=== PATIENT | male | born 1960 | race Caucasian/White ===

== ENCOUNTER 2019-11-08 15:35 | Inpatient (IN) | payer BC, SELFPAY ==
[2019-11-08 15:36] VITALS: BP 122/83; PULSE 69; RESP 14; TEMP 36.6; O2SAT 97; BMI 43.9
--- NOTE | 2019-11-08 15:44 | W.ED.CHESTPA ---
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
--- NOTE | 2019-11-08 15:49 | XRR_ITS ---
PROCEDURE INFORMATION: Exam: XR Chest, 1 View Exam date and time: 11/08/2019 4:02 PM Age: 58 years old Clinical indication: Shortness of breath; Chest pain; Type not specified; Prior surgery; Surgery date: 6+ months; Surgery type: Stent TECHNIQUE: Imaging protocol: XR of the chest Views: 1 view. COMPARISON: CR Chest 1 [place] [id number] 01/03/2018 5:33 AM FINDINGS: Lungs: In low lung volumes are seen the lungs are otherwise clear Pleural space: Unremarkable. No pleural effusion. No pneumothorax. Heart/Mediastinum: Unremarkable. No cardiomegaly. Bones/joints: Unremarkable. XR/XR chest 1V portable [id number] IMPRESSION: Low lung volumes Otherwise No acute findings.
--- NOTE | 2019-11-08 15:50 | ECG_ITS ---
Measurements Intervals [place] Rate: 65 P: -12 MA: 125 QRS: 16 QRSD: 86 T: 32 QT: 401 QTc: 419 SINUS RHYTHM LOW QRS VOLTAGE IN PRECORDIAL LEADS [QRS DEFLECTION < 1.0 mV IN CHEST LEADS] Compared to ECG 01/03/2018 09:22:28 No significant changes Electronically Signed On 11-08-2019 20:29:09 VP PURCHASING by Padmini Rey M.D. [id number] f
--- NOTE | 2019-11-08 16:01 | W.ED.CHESTPA ---
HPI - Chest Pain General: Chief Complaint: Chest Pain Stated Complaint: Chest Pain History of Present Illness: HPI narrative: 58-year-old male presents the emergency room with chest pain substernal radiating into his back similar to pain he has had before. He is a known history of coronary disease and is previously had an TX and the LAD distribution with subsequent angioplasty and stenting he remains on Brilinta. Chest pain began while he was actively doing some housework he rated it as a 10 he is on Ranexa and slow release nitro. He is allergic to aspirin. Topical nitro was applied by EMS he states it relieved the pain down to a 7 of 10. He is still having chest pain with mild shortness of breath. 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 Onset (ago): hour(s) (About 1 hour) Timing of current episode: constant Prior episodes: Yes Onset: during exertion (Mild exertion) Pain location: substernal Pain radiation: left arm, back and neck Severity: severe Pain scale (0-10): 7 Quality: tightness, heaviness, sharp and similar to prior TX Relieving factors: nitroglycerin, rest and other (oxygen) Exacerbating factors: exertion Context: recent illness Associated symptoms: Reports diaphoresis, dyspnea, palpitations and sense of impending doom; Deny abdominal pain, nausea or vomiting Treatment prior to arrival: nitroglycerin and oxygen Review of Systems Const: Reports: diaphoresis ENMT: Denies: throat pain, ear pain, nasal discharge or nasal congestion Card: Reports: chest pain, palpitations and shortness of breath on exertion Resp: Reports: shortness of breath GI: Denies: abdominal pain, nausea, vomiting, vomiting blood, coffee grounds in vomit, diarrhea, constipation, bloating, blood in stool or black tarry stool : Denies: flank pain, painful urination, urinary frequency or urinary urgency Skin/Breast: Denies: rash or itching PFSH ED PFSH: Statuses (acute, chronic, etc) shown below reflect problem list status as previously entered and may not be historically accurate Medical History Aspirin allergy (Acute) CAD (coronary artery disease) (Acute) CHF (congestive heart failure), NYHA class I (Acute) Chronic kidney disease (CKD) (Acute) Dyslipidemia (Acute) Essential hypertension (Acute) Obesity (Acute) STEMI (ST elevation myocardial infarction) (Acute) Tobacco abuse (Acute) Social History Smoking and tobacco status: former smoker Physical Exam Const: COMMON NORMALS: average body habitus, oriented x3 and alert GENERAL APPEARANCE: cooperative, comfortable, well kempt and well developed NUTRITIONAL APPEARANCE: obese ORIENTATION/CONSCIOUSNESS: Yes awake, Yes oriented to person and Yes oriented to place HENMT: COMMON NORMALS: normocephalic, head/scalp atraumatic, EAC's normal, TM's normal bilaterally, external nose normal, moist oral mucous membranes and oropharynx normal HEAD & SCALP: normocephalic and atraumatic NOSE: external nose normal EXTERNAL AUDITORY CANAL: EAC's normal TYMPANIC MEMBRANE: TM's normal bilaterally MOUTH: oral and palatal mucosa normal, lip normal and tongue normal THROAT: posterior oropharynx normal and tonsils normal Eye: COMMON NORMALS: PERRL, EOMs intact bilaterally, conjunctivae normal and no scleral icterus CONJUNCTIVA: Yes conjunctivae normal PUPIL: Yes PERRL Neck/C-Spine: COMMON NORMALS: full ROM, no lymphadenopathy, supple, no meningeal signs and thyroid normal THYROID: thyroid normal and asymmetrical Lymph: LYMPHATIC: no lymphadenopathy noted Resp: COMMON NORMALS: normal respiratory effort, no retractions, no use of accessory muscles and clear to auscultation bilaterally AUSCULTATION: clear to auscultation bilaterally Cardio: COMMON NORMALS: regular rate and regular rhythm RATE: regular rate RHYTHM: regular rhythm HEART SOUNDS: no murmurs GI: COMMON NORMALS: normal to inspection, nondistended, normoactive bowel sounds, soft to palpation and no hepatosplenomegaly PALPATION: Yes soft and Yes no hepatosplenomegaly : COMMON NORMALS: Yes no CVA tenderness BLADDER/KIDNEY EXAM: Yes no CVA tenderness Back/Pelvis: COMMON NORMALS: no CVA tenderness LUMBAR SPINE/LOWER BACK: Yes normal to inspection Extremity: COMMON NORMALS: no clubbing, cyanosis or edema, no calf tenderness and no pedal edema Neuro: COMMON NORMALS: oriented x3 SENSORIUM/ORIENTATION: Yes alert, Yes oriented to person and Yes oriented to place MENINGEAL SIGNS: Yes no meningeal signs Psych: APPEARANCE: Yes well kempt Skin: COMMON NORMALS: no rashes or lesions noted and skin turgor normal GENERAL SKIN EXAM: no rashes or lesions noted and turgor normal Course ED course: Discussed Dr. Rodriguez she will take patient on admission and consult cardiology reviewed findings to this point. Vital Signs: Vital signs: Vital Signs Temperature 98.0 F 11/09/19 10:50 Pulse Rate 70 11/09/19 15:11 Respiratory Rate 20 H 11/09/19 15:11 Blood Pressure 113/73 11/09/19 15:11 Pulse Oximetry 96 11/09/19 07:04 MDM - Chest Pain Lab Data: Labs: Lab Results 11/08/19 11/08/19 11/08/19 Range/Units 16:07 16:07 16:07 WBC 6.5 (4.0-10.0) 10^3/ uL RBC 4.50 (4.1-5.3) 10^6/u L Hgb 13.2 (11.7-16.6) g/dL Hct 42.3 (42.0-52.0) % MCV 94.0 (80-94) fL MCH 29.3 (28.0-34.0) pg MCHC 31.2 (30.0-36.0) g/dL RDW 13.5 (12.1-15.1) % Plt Count 188 (130-400) 10^3/c mm MPV 9.4 (7.4-10.4) fL Neut % (Auto) 60.6 % Lymph % (Auto) 24.8 % Davis % (Auto) 8.5 % Eos % (Auto) 3.2 % Baso % (Auto) 0.6 % Neut # (Auto) 3.9 (1.8-7.7) 10^3/u L Lymph # (Auto) 1.6 (0.8-4.8) 10^3/u L Davis # (Auto) 0.6 (0.2-0.9) 10^3/u L Eos # (Auto) 0.2 (0.0-0.8) 10^3/u L Baso # (Auto) 0.0 (0.0-0.1) 10^3/u L Nucleated RBC % (a uto) 0 % Nucleated RBCs # 0.0 /100WBC Sodium 137 (136-145) mmol/L Potassium 4.4 (3.5-5.1) mmol/L Chloride 102 (98-107) mmol/L Carbon Dioxide 25 (22-29) mmol/L Anion Gap 14.4 (5-19) BUN 22 H (6-20) mg/dL Creatinine 1.3 H (0.7-1.2) mg/dL GFR Calculation 56.7 L (90-130) mL/min Glucose 99 (74-109) mg/dL Calcium 10.0 (8.6-10.0) mg/Dl Total Bilirubin 0.3 (0.15-1.2) mg/dL AST 19 (0-40) U/L ALT 26 (0-41) U/L Alkaline Phosphata se 53 (40-130) IU/L Troponin T Baselin e 8 (0-15) ng/mL Total Protein 6.7 (6.6-8.7) g/dL Albumin 4.1 (3.5-5.2) g/dL Globulin 2.6 (1.3-4.6) g/dL Discharge Plan Discharge Patient Disposition: Admitted As Inpatient Admit Provider: Carmencita Rodriguez Condition: Stable Discharge Orders: Discharge Order (Routine); Ordered 11/09/19 Ordered By: Carmencita Rodriguez Referrals: Elba Townsend MD [Physician] - 2 weeks (You have a cardiology followup at [facility] with KRZYSZTOF Aragon on November 22 at 1:00pm. Any appointment changes, please call them at [phone]) Discharge Diet: Usual diet, Low Salt and Low Cholesterol Discharge Activity: Resume usual activity Patient Instructions: Metoprolol (By mouth), Atorvastatin (By mouth), Fenofibrate (By mouth), Ticagrelor (By mouth), Coronary Artery Disease (DC), Chest Pain Stoplight Discharge Date/Time: 11/08/19 20:00 Coding Level of Care Code ED Rejector for Tommyg Fwd Exam Problem Focused
[2019-11-08 16:22] VITALS: RESP 16
[2019-11-08] MEDS: nitroglycerin drip 50 MG/250 ML PREMIX IV (16:22)
[2019-11-08] MEDS: ondansetron 2 mg/ML SDV 2 mL 4 MG IVP (16:22)
[2019-11-08] MEDS: morphine 4 mg/mL SDV 1 mL IVP (16:22)
[2019-11-08 16:24] LABS: Basophils % 0.6 %; Eosinophils # 0.2 10^3/uL (0.0-0.8); Eosinophils % 3.2 %; Hematocrit 42.3 % (42.0-52.0); Hemoglobin 13.2 g/dL (11.7-16.6); Lymphocytes # 1.6 10^3/uL (0.8-4.8); Lymphocytes % 24.8 %; Mean Corpuscular HGB Conc 31.2 g/dL (30.0-36.0); Mean Corpuscular Hemoglobin 29.3 pg (28.0-34.0); Mean Platelet Volume 9.4 fL (7.4-10.4); Monocytes # 0.6 10^3/uL (0.2-0.9); Monocytes % 8.5 %; Neutrophils # 3.9 10^3/uL (1.8-7.7); Neutrophils % 60.6 %; Nucleated Red Blood Cells % 0 %; Platelet Count 188 10^3/cmm (130-400); Red Cell Distribution Width 13.5 % (12.1-15.1); White Blood Count 6.5 10^3/uL (4.0-10.0)
[2019-11-08 16:33] LABS: Alanine Aminotransferase 26 U/L (0-41); Albumin Level 4.1 g/dL (3.5-5.2); Alkaline Phosphatase 53 IU/L (40-130); Anion Gap 14.4 (5-19); Aspartate Amino Transferase 19 U/L (0-40); Blood Urea Nitrogen 22 mg/dL (6-20); Carbon Dioxide 25 mmol/L (22-29); Chloride 102 mmol/L (98-107); Globulin 2.6 g/dL (1.3-4.6); Glomerular Filtration Rate 56.7 mL/min (90-130); Glucose 99 mg/dL (74-109); Potassium 4.4 mmol/L (3.5-5.1); Sodium 137 mmol/L (136-145); Total Bilirubin 0.3 mg/dL (0.15-1.2); Total Protein 6.7 g/dL (6.6-8.7); Troponin(5th) Baseline 8 ng/mL (0-15)
--- NOTE | 2019-11-08 17:50 | ECG_ITS ---
Measurements Intervals [place] Rate: 61 P: 29 [place]: 152 QRS: 17 QRSD: 87 T: 32 QT: 422 QTc: 427 SINUS RHYTHM LOW QRS VOLTAGE IN PRECORDIAL LEADS [QRS DEFLECTION < 1.0 mV IN CHEST LEADS] PROBABLE INFERIOR MYOCARDIAL INFARCTION [35 ms Q WAVE IN II/aVF], OF INDETERMINATE AGE WITH POSTERIOR EXTENSION [PROMINENT R WA Compared to ECG 01/03/2018 09:22:28 Myocardial infarct finding now present Electronically Signed On 11-08-2019 20:36:29 GREEN PROMOTIONS SPECIALIST by Padmini Rey M.D. [id number]
[2019-11-08 17:53] VITALS: BP 110/69; PULSE 63; RESP 18; O2SAT 99
--- NOTE | 2019-11-08 18:36 | P.HP_ITS ---
Providers/Chief Complaint Admitting Physician: Carmencita Rodriguez MD Primary Care Provider: Anthony Marquez Chief Complaint: Chest Pain History of Present Illness Mr. Thomson is a 89/-year-old gentleman with past medical history of ST elevation SC of anterolateral wall on 02/17/2017 for which he underwent drug- eluting stent placement in 100% occluded proximal LAD. He continued to have chest heaviness and shortness of breath and underwent repeat cardiac catheterization in July 2017 and was found to have proximal to mid LAD lesions that were stented. He has aspirin allergy and is only on Brillinta. He continued to have chest pains on and off and was started on Ranexa and Imdur. He presented again in December 2017 with c/o retrosternal chest pain. Patient underwent cardiac catheterization and was found to have patent stents. His medications were optimized. He had previously had a stress test in nov 2017 which was negative. Last echo 03/2017 with Normal left ventricular cavity size. Moderate left ventricular hypertrophyof concentric type. Moderately decreased left ventricular systolic function. Left ventricular ejection fraction is estimated at 40 %. There is mid to distal anterior and apical severe hypokinesis.Grade II/IV diastolic dysfunction. He last followed up with Dr. Townsend one month ago. 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 Pain was 10/10, made him nearly want to pass out . radiation to neck +. [place] similar to his SC back in 2016. No apparent relieving factors including taking S/l nitro at home. In the ER he was started on nitro infusion because of ongoing pain in spite of nitropaste. Also received morphine after which pain has subsided over the past hour. Ekg without any acute ST-T changes. First troponin is negtive at 8. Serial test is pending. ROS + for feeling nauseous with dry heaves since waking up this morning. Headache+. Review of Systems General: Reports: 10 or more systems reviewed and unremarkable except in HPI and below Const: Denies: fever, chills, body aches or change in appetite Eyes: Denies: change in vision or blurry vision Card: Reports: chest pain; Denies: palpitations, irregular heart rhythm, edema, lightheadedness, syncope, pre-syncope or shortness of breath on exertion Resp: Denies: shortness of breath, productive cough, non-productive cough or wheezing GI: Reports: nausea; Denies: abdominal pain, vomiting, vomiting blood, coffee grounds in vomit or difficulty swallowing : Denies: flank pain, difficulty urinating, painful urination, urinary frequency or urinary urgency Neuro: Denies: headache, numbness in extremities or weakness in extremities Medications/Allergies Home Medications Medication Instructions Recorded Confirmed Last Taken Type alprazolam [Xanax] 1 mg PO Q12H 11/09/19 11/09/19 11/08/19 08:00 History cyclobenzaprine 10 mg PO Q12H 11/09/19 11/09/19 11/08/19 08:00 History ranolazine [Ranexa] 1,000 mg PO Q12H 11/09/19 11/09/19 11/08/19 08:00 History Allergies Allergy/AdvReac Type Severity Reaction Status Date / Time aspirin Allergy Unknown Verified 11/08/19 15:46 azithromycin Allergy Unknown Verified 11/08/19 15:46 NSAIDS (Non-Steroidal Allergy Unknown Verified 11/08/19 15:46 Anti-Inflamma PFSH Acute PFSH: Statuses (acute, chronic, etc) shown below reflect problem list status as previously entered and may not be historically accurate Medical History (Updated 11/09/19 @ 11:23 by Miguel Angel Bejarano MD) Aspirin allergy (Acute) CAD (coronary artery disease) (Acute) CHF (congestive heart failure), NYHA class I (Acute) Chronic kidney disease (CKD) (Acute) Dyslipidemia (Acute) Essential hypertension (Acute) Obesity (Acute) STEMI (ST elevation myocardial infarction) (Acute) Tobacco abuse (Acute) Social History Smoking and tobacco status: former smoker Vitals/I&O/Wt Last Vital Signs Temp 97.9 F 11/08/19 15:36 Pulse 63 11/08/19 17:53 Resp 18 11/08/19 17:53 BP 110/69 11/08/19 17:53 Pulse Ox 99 11/08/19 17:53 Weight last 48 hrs Weight 119.748 kg Physical Exam Narrative: EXAM NARRATIVE: Gen: Awake,alert and oriented x 3, NAD, anxious HEENT: normocephalic, atraumatic CVS: S1S2N, no M/r/g RS: Clear to auscultation B/L Abd: Soft, NT/ND, BS+ Data : 11/09/19 04:56 11/09/19 04:56 A&P Assessment and plan (1) CAD (coronary artery disease): Status: Acute Code(s): I25.10 - Atherosclerotic heart disease of [place] coronary artery without angina pectoris Additional A&P Information Per ER report, he received nitropaste applications x 2 with no significant r eleif in chest pain. He was started on nitroglycerin infusion and morphine, which eventually relieved his pain. At time of my exam, chest pain free x 1 hour Baseline troponin at 8. 2hr and 6 hr with delta pending Past echo 03/2017 as per HPI. Last angiogram as above in HPI List of current home medications N/a at this time. From review of prior records, he is on Brilinta, simvastatin, fenofibrate, metoprolol,losartan, ranexa and imdur. Per notes, known to be allergic to ASA. Will continue same for now, except for losartan as cr currently at 1.3 (previously varies between 0.9-1.3), and in case needs angiogram this current admission Cardiology consult re: pursuing cardiac stress test vs angiogram DVT ppx: Lovenox Code status: Attestations Medical Necessity Statement*: Work-up of chest pain with a significant past medical history of coronary artery disease. 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
[2019-11-08 18:40] LABS: Troponin 5 2HR 7.77 ng/mL (0-15)
[2019-11-08 18:55] LABS: Troponin 5 2HR Delta -0.23 ABS# (0-10)
[2019-11-08 19:59] VITALS: BP 134/82; PULSE 62; RESP 20; O2SAT 98
[2019-11-08 20:14] VITALS: BP 137/83; PULSE 62; RESP 24; TEMP 36.7; O2SAT 98
--- NOTE | 2019-11-08 21:50 | ECG_ITS ---
Measurements Intervals [place] Rate: 61 P: 49 [place]: 157 QRS: 18 QRSD: 92 T: 32 QT: 396 QTc: 400 SINUS RHYTHM LOW QRS VOLTAGE IN PRECORDIAL LEADS [QRS DEFLECTION < 1.0 mV IN CHEST LEADS] PROBABLE INFERIOR MYOCARDIAL INFARCTION [35 ms Q WAVE IN II/aVF], PROBABLY OLD WIT WITH POSTERIOR EXTENSION [PROMINENT R WAVE IN V1 Compared to ECG 11/08/2019 17:37:32 No significant changes Electronically Signed On 11-09-2019 15:27:52 COUNTER TOP MAKER by Miguel Angel Bejarano M.D. [id number]
[2019-11-08 23:08] LABS: Troponin 5 6HR 9.08 ng/L (0-15); Troponin 5 6HR Delta 1.08 ng/L (0-12)
[2019-11-08] MEDS: acetaminophen 325 mg Tablet 650 MG PO (23:48)
[2019-11-08] MEDS: atorvastatin 40 mg Tablet PO (23:48)
[2019-11-08] MEDS: enoxaparin 30 mg/0.3 mL Syringe SUBCUT (23:51)
[2019-11-08] MEDS: nitroglycerin drip 50 MG/250 ML PREMIX (23:54)
[2019-11-09] VITALS (8 sets, daily range): BP systolic 113–135; BP diastolic 73–97; PULSE 64–88; RESP 20–27; TEMP 36.6–36.7; O2SAT 94–97; BMI 43.9
[2019-11-09 05:40] LABS: Basophils % 0.3 %; Eosinophils # 0.2 10^3/uL (0.0-0.8); Hematocrit 42.3 % (42.0-52.0); Hemoglobin 13.2 g/dL (11.7-16.6); Lymphocytes # 1.9 10^3/uL (0.8-4.8); Lymphocytes % 25.6 %; Mean Corpuscular HGB Conc 31.2 g/dL (30.0-36.0); Mean Corpuscular Hemoglobin 30.6 pg (28.0-34.0); Mean Corpuscular Volume 97.9 fL (80-94); Mean Platelet Volume 9.5 fL (7.4-10.4); Monocytes # 0.5 10^3/uL (0.2-0.9); Monocytes % 6.9 %; Neutrophils # 4.7 10^3/uL (1.8-7.7); Neutrophils % 62.8 %; Nucleated Red Blood Cells % 0 %; Platelet Count 176 10^3/cmm (130-400); Red Blood Count 4.32 10^6/uL (4.1-5.3); Red Cell Distribution Width 13.9 % (12.1-15.1); White Blood Count 7.4 10^3/uL (4.0-10.0)
[2019-11-09 06:17] LABS: Alanine Aminotransferase 26 U/L (0-41); Albumin Level 4.1 g/dL (3.5-5.2); Alkaline Phosphatase 50 IU/L (40-130); Anion Gap 16.2 (5-19); Aspartate Amino Transferase 21 U/L (0-40); Blood Urea Nitrogen 22 mg/dL (6-20); Calcium 9.5 mg/Dl (8.6-10.0); Carbon Dioxide 23 mmol/L (22-29); Chloride 104 mmol/L (98-107); Chol HDL Ratio 4.56 mg/dL (1.0-5.00); Cholesterol 164 mg/dL (0-200); Glomerular Filtration Rate 62.2 mL/min (90-130); Glucose 106 mg/dL (74-109); HDL Cholesterol 36 mg/dL (60-100); LDL Cholesterol Calculated 83 mg/dL (50-129); LDL HDL Ratio 2.31 RATIO (0.00-3.22); Osmolality Calculated 285 mOsm/kg (285-295); Potassium 4.2 mmol/L (3.5-5.1); Sodium 139 mmol/L (136-145); Total Bilirubin 0.3 mg/dL (0.15-1.2); Total Protein 6.1 g/dL (6.6-8.7); Triglycerides 224 mg/dL (0-150)
[2019-11-09 06:30] LABS: Estmated Average Glucose 131; Hemoglobin A1C 6.2 % (4.0-6.0)
[2019-11-09] MEDS: acetaminophen 325 mg Tablet 650 MG PO (09:40)
[2019-11-09] MEDS: cyclobenzaprine 10 mg Tablet PO (10:09)
[2019-11-09] MEDS: metoprolol tartrate 25 mg Tablet PO (10:11)
[2019-11-09] MEDS: ticagrelor 90 mg Tablet PO (10:11)
[2019-11-09] MEDS: ranolazine (12HR) 500 mg Tablet 1000 MG PO (10:11)
[2019-11-09] MEDS: fenofibrate 145 mg Tablet PO (10:11)
--- NOTE | 2019-11-09 10:13 | PC.NURSE ---
Assisted primary nurse SHANNON Pascual with med pass and rounding. Med education performed with patient and . They deny further questions at this time.
--- NOTE | 2019-11-09 11:16 | P.CONIM_ITS ---
Providers/Reason For Consult Consulting Physican/Specialty*: Cardiovascular diseases Reason for Consult*: Chest pain Attending Physician: Carmencita Rodriguez MD Primary Care Provider: Anthony Marquez History of Present Illness History of Present Illness Clifford Geronimo is a 58 year old male with a known history of coronary artery disease. In February 2017 he had an acute anterior wall LA and had a stent placed to his LAD. 5 months later in July of the same year he had further stenting of the LAD. Initial anterior wall LA was complicated by congestive heart failure. His ejection fraction is about 40% with an ischemic cardiomyopathy. After that he had multiple return visits to the emergency room in the hospital between July 2017 and December 2017. I finally performed repeat angiography in December 2017 and the stents were all normal and open. Since then he has done relatively well and is seen periodically as an outpatient. He sees Dr. Townsend and just visited with him about a month ago. Patient is under a great deal of stress with his parents. He is now disabled and unemployed which stresses him. 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 He took 1 nitroglycerin, called his and then she instructed him to call 911. In route he was given several more nitroglycerin and a nitro paste patch was placed. He was also given morphine and Zofran. In the emergency room he was placed on a nitroglycerin drip. He is still on a nitro drip. He has a headache. His pain is gone. His EKGs are unchanged and his troponin is negative. Review of Systems General: Reports: 10 or more systems reviewed and unremarkable except in HPI and below Meds/Allergies Home Medications and Allergies Home Medications Medication Instructions Recorded Confirmed Type alprazolam [Xanax] 1 mg PO Q12H 11/09/19 11/09/19 History cyclobenzaprine 10 mg PO Q12H 11/09/19 11/09/19 History ranolazine [Ranexa] 1,000 mg PO Q12H 11/09/19 11/09/19 History Allergies Allergy/AdvReac Type Severity Reaction Status Date / Time aspirin Allergy Unknown Verified 11/08/19 15:46 azithromycin Allergy Unknown Verified 11/08/19 15:46 NSAIDS (Non-Steroidal Allergy Unknown Verified 11/08/19 15:46 Anti-Inflamma Current Medications Current Medications Generic Name Dose Route Start Last Admin Trade Name Freq PRN Reason Stop Dose Admin Acetaminophen 650 mg 11/08/19 19:04 11/09/19 09:40 Tylenol PO 650 mg Q6H PRN Administration Mild/Mod Pain Or Temp >/= 101 Alprazolam 1 mg 11/09/19 09:00 11/09/19 10:06 Xanax PO 1 mg BID MARSHAL Administration Atorvastatin Calcium 40 mg 11/08/19 21:00 11/08/19 23:48 Lipitor PO 40 mg BEDTIME MARSHAL Administration Cyclobenzaprine HCl 10 mg 11/09/19 09:00 11/09/19 10:09 Flexeril PO 10 mg BID MARSHAL Administration Fenofibrate 145 mg 11/09/19 09:00 11/09/19 10:11 Tricor PO 145 mg DAILY MARSHAL Administration Metoprolol Tartrate 25 mg 11/09/19 09:00 11/09/19 10:11 Lopressor PO 25 mg BID MARSHAL Administration Ticagrelor 90 mg 11/09/19 09:00 11/09/19 10:11 Brilinta PO 90 mg BID MARSHAL Administration PFSH Acute PFSH: Statuses (acute, chronic, etc) shown below reflect problem list status as previously entered and may not be historically accurate Medical History (Updated 11/09/19 @ 11:23 by Miguel Angel Bejarano MD) Aspirin allergy (Acute) CAD (coronary artery disease) (Acute) CHF (congestive heart failure), NYHA class I (Acute) Chronic kidney disease (CKD) (Acute) Dyslipidemia (Acute) Essential hypertension (Acute) Obesity (Acute) STEMI (ST elevation myocardial infarction) (Acute) Tobacco abuse (Acute) Social History Smoking and tobacco status: former smoker Vitals/I&O/Wt Last Vital Signs Temp 98.0 F 11/09/19 10:50 Pulse 88 11/09/19 10:50 Resp 27 H 11/09/19 10:50 BP 135/75 11/09/19 10:50 Pulse Ox 96 11/09/19 07:04 11/08/19 11/09/19 11/09/19 22:59 06:59 14:59 Output Total 450 / 450 1999 Balance -450 / -450 -1999 Weight last 48 hrs Weight 264 lb Weight 264 lb Physical Exam Narrative: EXAM NARRATIVE: GENERAL: In general he looks and feels well. He has a headache. HEENT: Exam within normal limits. NECK: Supple without jugular vein distention. The carotid upstroke is normal without bruits. BACK: Exam normal. LUNGS: Clear. HEART: Regular rate and rhythm. ABDOMEN: Benign without organomegaly or tenderness. EXTREMITIES: No edema. NEUROLOGIC: Exam normal. SKIN: Unremarkable. A&P Assessment and plan (1) Aspirin allergy: Status: Acute Code(s): Z88.8 - Allergy status to other drugs, medicaments and biological substances status (2) Dyslipidemia: Status: Acute Code(s): E78.5 - Hyperlipidemia, unspecified (3) Essential hypertension: Status: Acute Code(s): I10 - Essential (primary) hypertension (4) Tobacco abuse: Status: Acute Code(s): Z72.0 - Tobacco use (5) CAD (coronary artery disease): Status: Acute Code(s): I25.10 - Atherosclerotic heart disease of [place] coronary artery without angina pectoris Additional A&P Information EKG is essentially normal. Troponins are negative. Pain was somewhat atypical and slightly different than that which he had previously. He is under a lot of stress. I gave him several options. One would be to move directly to angiography which I do not really think he needs. Another would be to perform stress testing while here or as an outpatient. Thirdly would be to continue to treat him medically without any testing currently. Right now he would like to go home and see how things go. He has told me that he will contact us if he has any further discomfort and we would move forward with stress testing or angiography. He is in a relatively low risk group given the negative EKG and enzymes. His last angiogram revealed the stents to be patent which would suggest they probably still are. He will keep his regularly scheduled follow-up with Dr. Townsend. Consult Attestations Medical Necessity Statement: Not applicable Time Spent in Patient Care: Greater than 35 minutes (>than 50% of time spent in counselling and/or direct pt care on unit) . Coding Level of Care Code New Pt Acute Analytical Consultant for Chg Fwd Patient Type New History Comprehensive Exam Detailed Medical Decision Making Moderate Complexity Diagnoses Aspirin allergy Z88.8 Dyslipidemia E78.5 Essential hypertension I10 Tobacco abuse Z72.0 CAD (coronary artery disease) I25.10 Time Spent (min) 40
--- NOTE | 2019-11-09 12:49 | PC.CHAP ---
Pastoral Care Encounter/Spiritual Assessment Type of Contact [] Declined automatic blocker visit [] Patient/Family/Request visit [] Outpatient visit [] Follow-up visit [] Physician referral [] Code/Alert [x] Routine visit [] Staff referral [] Actively dying [] Patient sleeping [x] Family support [] [] Out of room [] Palliative care [] [] Receiving care in room [] Pre-surgical visit [] Trauma [] Long length of stay [] ICU visit [] Other: Relational/Emotional Strength [] Patient feels connected with others/family/visitors/staff [] Distress [] Loneliness/isolation [] Abandonment Spirituality of Patient [] Person of Kayli [] Attends Methodist of their Kayli [] Believes in Prayer [] Reads Bible or Gnosticist materials [] There are Spiritual issues to be addressed 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 Interventions [x] Prayer [] Active listening [] Non-anxious presence [] Spiritual/emotional support [] Crisis/trauma care [] Spiritual counseling [] Bereavement support [] Provided bereavement packet [] Provided Bible/devotional materials [] Provided toy/stuffed animal, coloring book to patient or family member [x] Completed spiritual assessment [] Provided Communion [] Anointing/[place] [] Salvation [] Other: Impact on Illness or Injury [] Angry [] Fearful [] Anxious [] Often cries [] Exhaustion [] Unable to work [] Unable to attend restorationism [] Unable to walk/stand [] Unable to read [] Unable to drive [] Unable to eat/drink [] Unable to sleep [] Unable to be with family [x] Other: Patients present. Patient hoping to be released to go home today. Summary Time spent with patient 5min
--- NOTE | 2019-11-09 15:15 | PM.DCS ---
Discharge Providers Date of Admission: 11/08/19 17:18 Date of Discharge: 11/09/19 Attending Provider at Admission: Carmencita Rodriguez MD Attending Provider at Discharge: Carmencita Rodriguez MD Primary Care Provider: Anthony Marquez Diagnoses at Discharge Discharge Diagnosis (1) CAD (coronary artery disease): Status: Acute Reason for Visit Reason for Visit: Reason For Visit: Chest Pain Hospital Course Discharge Summary: 89/-year-old gentleman with past medical history of ST elevation AR of anterolateral wall on 02/17/2017 for which he underwent drug-eluting stent placement in 100% occluded proximal LAD. He continued to have chest heaviness and shortness of breath and underwent repeat cardiac catheterization in July 2017 and was found to have proximal to mid LAD lesions that were stented. He has aspirin allergy and is only on Brillinta. He continued to have chest pains on and off and was started on Ranexa and Imdur. He presented again in December 2017 with c/o retrosternal chest pain. Patient underwent cardiac catheterization and was found to have patent stents. His medications were optimized. He had previously had a stress test in nov 2017 which was negative. He did yesterday with chief complaints of chest pain while working at home. It was radiating into his neck. Troponins were negative. There were no acute ST-T changes. He received multiple sublingual nitrates without any relief in symptoms. He was then put on a nitroglycerin drip which was eventually titrated off this morning. He remains chest pain-free since admission. He was seen by cardiology. Option to perform a stress test were discussed with the patient. However he states that he has been under a lot of stress recently and would prefer to go home rather than remain in the hospital at this time. He states that he will be with his who can keep an eye on him and return to the hospital in case of any recurrent chest pain for further testing. Physical Exam Narrative: EXAM NARRATIVE: GEN: Awake, alert and oriented, no acute distress CVS: S1S2 N RS: CTA B/L Abd: Soft, nt/nd , bs+ ELECTRICAL PROSPECTING ENGINEER: no focal neuro deficits Discharge Data Data Completed and Pending: Completed Studies During Hospitalization Category Date Time Status XR chest 1V rupinder ble [id number] Stat Exams 11/08/19 15:49 Completed Pending at discharge Category Date Time Status Basic Metabolic P sulma AM LABS Lab 11/10/19 04:00 Ordered Basic Metabolic P sulma AM LABS Lab 11/11/19 04:00 Ordered Labs from last 24 hours 11/09/19 11/09/19 11/09/19 04:56 04:56 04:56 WBC 7.4 RBC 4.32 Hgb 13.2 Hct 42.3 MCV 97.9 H MCH 30.6 MCHC 31.2 RDW 13.9 Plt Count 176 MPV 9.5 Neut % (Auto) 62.8 Lymph % (Auto) 25.6 [place] % (Auto) 6.9 Eos % (Auto) 3.0 Baso % (Auto) 0.3 Neut # (Auto) 4.7 Lymph # (Auto) 1.9 [place] # (Auto) 0.5 Eos # (Auto) 0.2 Baso # (Auto) 0.0 Nucleated RBC % (a uto) 0 Nucleated RBCs # 0.0 Sodium 139 Potassium 4.2 Chloride 104 Carbon Dioxide 23 Anion Gap 16.2 BUN 22 H Creatinine 1.2 GFR Calculation 62.2 L Glucose 106 Estimat Average Gl ucose 131 Hemoglobin A1c 6.2 H Calculated Osmolal ity 285 Calcium 9.5 Total Bilirubin 0.3 AST 21 ALT 26 Alkaline Phosphata se 50 Troponin I 6 Hour Troponin I Hi Sens Del Troponin T Baselin e Troponin T 120 Min [place] Delta Troponin T Total Protein 6.1 L Albumin 4.1 Globulin 2.0 Triglycerides 224 H Cholesterol 164 LDL Cholesterol, C alc 83 HDL Cholesterol 36 L LDL/HDL Ratio 2.31 Cholesterol/HDL Ra mary 4.56 11/08/19 11/08/19 11/08/19 22:20 18:15 16:07 WBC RBC Hgb Hct MCV MCH MCHC RDW Plt Count MPV Neut % (Auto) Lymph % (Auto) [place] % (Auto) Eos % (Auto) Baso % (Auto) Neut # (Auto) Lymph # (Auto) [place] # (Auto) Eos # (Auto) Baso # (Auto) Nucleated RBC % (a uto) Nucleated RBCs # Sodium Potassium Chloride Carbon Dioxide Anion Gap BUN Creatinine GFR Calculation Glucose Estimat Average Gl ucose Hemoglobin A1c Calculated Osmolal ity Calcium Total Bilirubin AST ALT Alkaline Phosphata se Troponin I 6 Hour 9.08 Troponin I Hi Sens Del 1.08 Troponin T Baselin e 8 Troponin T 120 Min [place] 7.77 Delta Troponin T -0.23 L Total Protein Albumin Globulin Triglycerides Cholesterol LDL Cholesterol, C alc HDL Cholesterol LDL/HDL Ratio Cholesterol/HDL Ra mary 11/08/19 11/08/19 16:07 16:07 WBC 6.5 RBC 4.50 Hgb 13.2 Hct 42.3 MCV 94.0 MCH 29.3 MCHC 31.2 RDW 13.5 Plt Count 188 MPV 9.4 Neut % (Auto) 60.6 Lymph % (Auto) 24.8 [place] % (Auto) 8.5 Eos % (Auto) 3.2 Baso % (Auto) 0.6 Neut # (Auto) 3.9 Lymph # (Auto) 1.6 [place] # (Auto) 0.6 Eos # (Auto) 0.2 Baso # (Auto) 0.0 Nucleated RBC % (a uto) 0 Nucleated RBCs # 0.0 Sodium 137 Potassium 4.4 Chloride 102 Carbon Dioxide 25 Anion Gap 14.4 BUN 22 H Creatinine 1.3 H GFR Calculation 56.7 L Glucose 99 Estimat Average Gl ucose Hemoglobin A1c Calculated Osmolal ity Calcium 10.0 Total Bilirubin 0.3 AST 19 ALT 26 Alkaline Phosphata se 53 Troponin I 6 Hour Troponin I Hi Sens Del Troponin T Baselin e Troponin T 120 Min [place] Delta Troponin T Total Protein 6.7 Albumin 4.1 Globulin 2.6 Triglycerides Cholesterol LDL Cholesterol, C alc HDL Cholesterol LDL/HDL Ratio Cholesterol/HDL Ra mary Vitals: Last Vital Signs Temp 98.0 F 11/09/19 10:50 Pulse 70 11/09/19 15:11 Resp 20 H 11/09/19 15:11 BP 113/73 11/09/19 15:11 Pulse Ox 96 11/09/19 07:04 Discharge Plan Discharge Patient Disposition: Home, Self-Care Condition: Stable Prescriptions: New atorvastatin 40 mg Tablet 40 mg PO BEDTIME Qty: 0 RF: 0 metoprolol tartrate 25 mg Tablet 25 mg PO BID Qty: 0 RF: 0 fenofibrate nanocrystallized 145 mg Tablet 145 mg PO DAILY Qty: 0 RF: 0 Brilinta 90 mg Tablet 90 mg PO BID Qty: 0 RF: 0 Continued ranolazine [Ranexa] 1,000 mg Tablet Extended Release 12 Hr 1,000 mg PO Q12H RF: 0 alprazolam [Xanax] 1 mg Tablet 1 mg PO Q12H RF: 0 cyclobenzaprine 10 mg Tablet 10 mg PO Q12H RF: 0 Discharge Orders: Discharge Order (Routine); Ordered 11/09/19 Ordered By: Carmencita Rodriguez Referrals: Elba Townsend MD [Physician] - 2 weeks (You [place] cardi[place] [facility] [place] KRZYSZTOF Aragon on November 22 at 1:00pm. Any appointment changes, please call them at [phone]) Discharge Diet: Usual diet, Low Salt and Low Cholesterol Discharge Activity: Resume usual activity Patient Instructions: Metoprolol (By mouth), Atorvastatin (By mouth), Fenofibrate (By mouth), Ticagrelor (By mouth), Coronary Artery Disease (DC), Chest Pain Stoplight Discharge Attestations Time Spent in Discharge Care*: less than 30 min Quality Metrics Clinical Quality Measures During this hospital stay, did patient experience: None Coding Level of Care Code Acute Physician Coding Specialist for [facility] Diagnoses CAD (coronary artery disease) I25.10
== END 2019-11-09 15:30 | disposition home or self-care (01) | DRG 303 ==
LOC: ER 17:05 → CSU 17:45
PROVIDERS: Admitting Provider Student in an Organized Health Care Education/Training Program; Emergency Provider Family Medicine; Family Provider Nurse Practitioner Family; PCP Nurse Practitioner Family; Visit Provider Student in an Organized Health Care Education/Training Program
DX: I25.10 Atherosclerotic heart disease of native coronary artery without angina pectoris (principal); I13.0 Hypertensive heart and chronic kidney disease with heart failure and stage 1 through stage 4 chronic kidney disease, or unspecified chronic kidney disease; Z68.41 Body mass index [BMI] 40.0-44.9, adult; N18.9 Chronic kidney disease, unspecified; Z87.891 Personal history of nicotine dependence; E78.5 Hyperlipidemia, unspecified; E66.9 Obesity, unspecified; I25.2 Old myocardial infarction; Z95.5 Presence of coronary angioplasty implant and graft; I50.9 Heart failure, unspecified
CPT/HCPCS: 12345; 36415; 71045; 80048; 80053; 80061; 83036; 84484; 85025; 93005; 96372; 96374; 99281; J1650; J2270; J2405; J3490

== ENCOUNTER 2020-08-26 14:07 | Outpatient (CLI) | payer BC, SELFPAY | END 2020-08-26 14:08 | disposition home or self-care (01) | LOC: WOUND 14:07 | PROVIDERS: Family Provider Nurse Practitioner Family; PCP Nurse Practitioner Family; Visit Provider Thoracic Surgery (Cardiothoracic Vascular Surgery) | DX: I87.2 Venous insufficiency (chronic) (peripheral) (principal); L97.822 Non-pressure chronic ulcer of other part of left lower leg with fat layer exposed | CPT/HCPCS: 97597; G0463 ==

== ENCOUNTER 2020-08-29 10:52 | Outpatient (CLI) | payer BC, SELFPAY | END 2020-08-29 10:53 | disposition home or self-care (01) | LOC: WOUND 10:53 | PROVIDERS: Family Provider Nurse Practitioner Family; PCP Nurse Practitioner Family; Visit Provider Nurse Practitioner Family | DX: I87.2 Venous insufficiency (chronic) (peripheral) (principal); L97.829 Non-pressure chronic ulcer of other part of left lower leg with unspecified severity | CPT/HCPCS: 29581 ==

== ENCOUNTER 2020-09-02 14:23 | Outpatient (CLI) | payer BC, SELFPAY | END 2020-09-02 14:24 | disposition home or self-care (01) | LOC: WOUND 14:23 | PROVIDERS: Family Provider Nurse Practitioner Family; PCP Nurse Practitioner Family; Visit Provider Nurse Practitioner Family | DX: I87.2 Venous insufficiency (chronic) (peripheral) (principal); L97.822 Non-pressure chronic ulcer of other part of left lower leg with fat layer exposed | CPT/HCPCS: 11042 ==

== ENCOUNTER 2020-09-09 14:44 | Outpatient (CLI) | payer BC, SELFPAY | END 2020-09-09 14:45 | disposition home or self-care (01) | PROVIDERS: Family Provider Nurse Practitioner Family; PCP Nurse Practitioner Family; Visit Provider Nurse Practitioner Family | DX: Z09 Encounter for follow-up examination after completed treatment for conditions other than malignant neoplasm (principal) | CPT/HCPCS: 99212; A6545 ==

== ENCOUNTER 2020-09-18 13:11 | Outpatient (CLI) | payer BC, SELFPAY | END 2020-09-18 13:12 | disposition home or self-care (01) | LOC: WOUND 13:12 | PROVIDERS: PCP Nurse Practitioner Family; Visit Provider Thoracic Surgery (Cardiothoracic Vascular Surgery) | DX: S60.423A Blister (nonthermal) of left middle finger, initial encounter (principal); X58.XXXA Exposure to other specified factors, initial encounter | CPT/HCPCS: 99211 ==

== ENCOUNTER 2020-09-18 14:44 | Outpatient (CLI) | payer BC, SELFPAY ==
--- NOTE | 2020-09-18 15:00 | USCV_ITS ---
Clifford Geronimo Age: 59 Gender: M : 1960 Exam Date: 09/18/2020 14:55 Ordering Phys: Sancho Bob MD (Andy) [email or web address] [place] Technologist: Finesse Levy [place] [facility] [place]: HISTORY: PROCEDURES: FINDINGS: There is no evidence of bilateral deep vein thrombosis. No evidence of superficial thrombosis in the bilateral saphenous system. No evidence of reflux was noted in the bilateral deep venous system. No venous reflux noted in the bilateral greater saphenous vein. No venous reflux noted in the bilateral small saphenous vein. CONCLUSIONS No evidence of DVT in the above-mentioned identifiable veins. No significant venous reflux either in the deep or superficial veins bilaterally Venous dimensions and the depth from the surface are as mentioned above. Normal caliber veins bilaterally Dr Padmini Rey MD [facility] (Electronically Signed) Final Date: 18 September 2020 17:24 S
== END 2020-09-18 14:45 | disposition home or self-care (01) ==
LOC: US 14:45
PROVIDERS: PCP Nurse Practitioner Family; Visit Provider Thoracic Surgery (Cardiothoracic Vascular Surgery)
DX: M79.604 Pain in right leg (principal); M79.605 Pain in left leg; L53.9 Erythematous condition, unspecified; L97.529 Non-pressure chronic ulcer of other part of left foot with unspecified severity; L97.519 Non-pressure chronic ulcer of other part of right foot with unspecified severity
CPT/HCPCS: 93970

== ENCOUNTER 2020-09-20 09:31 | Outpatient (CLI) | payer BC, SELFPAY ==
--- NOTE | 2020-09-20 09:39 | USCV_ITS ---
ErikaClifford michelle Age: 59 Gender: M : 1960 Exam Date: 09/20/2020 09:39 Ordering Phys: Sancho Bob MD (Andy) ([email or web address]) Technologist: Exam Location: [facility] [place] Indication: PAIN REDNESS NON HEALING ULCER RIGHT LEFT Brachial 112.00 mmHg Brachial 106.00 mmHg Pressure (mmHg) Waveform Pressure (mmHg) Waveform 123.00 High Thigh 103.00 132.00 Below Knee 144.00 124.00 PONDMAN 140.00 114.00 DPA 127.00 1.11 Ankle/Brachial Index 1.25 161.00 Pre-Exercise Toe Pressure 118.00 Pre-Exercise Toe/Brachial Index 1.05 1.44 FINDINGS Normal ABIs and TBIs bilaterally Normal segmental pressures CONCLUSIONS No evidence of any significant arterial obstruction, based on the above findings. Dr Padmini Rey MD [facility] (Electronically Signed) Final Date: 20 September 2020 19:10 S
== END 2020-09-20 09:32 | disposition home or self-care (01) ==
LOC: US 09:33
PROVIDERS: PCP Nurse Practitioner Family; Visit Provider Thoracic Surgery (Cardiothoracic Vascular Surgery)
DX: M79.604 Pain in right leg (principal); M79.605 Pain in left leg; L53.9 Erythematous condition, unspecified; L97.929 Non-pressure chronic ulcer of unspecified part of left lower leg with unspecified severity; L97.919 Non-pressure chronic ulcer of unspecified part of right lower leg with unspecified severity
CPT/HCPCS: 93923

== ENCOUNTER 2020-09-25 12:53 | Emergency (ER) | payer BC, SELFPAY ==
[2020-09-25 12:55] VITALS: BP 137/73; PULSE 79; RESP 22; TEMP 36.7; O2SAT 96; BMI 44.9
--- NOTE | 2020-09-25 12:55 | ECG_ITS ---
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 Measurements Intervals [place] Rate: 67 P: 58 NC: 170 QRS: 26 QRSD: 77 T: 39 QT: 402 QTc: 425 Interpretive Statements SINUS RHYTHM LOW QRS VOLTAGE IN PRECORDIAL LEADS [QRS DEFLECTION < 1.0 mV IN CHEST LEADS] WARNING: DATA QUALITY MAY AFFECT INTERPRETATION Compared to ECG 11/09/2019 00:30:38 Myocardial infarct finding no longer present Electronically Signed On 09-25-2020 19:41:35 OUTSIDE SALES CONSULTANT by Padmini Rey M.D. [id number]
--- NOTE | 2020-09-25 12:55 | XR_ITS ---
WS: [id number] XR chest 1V portable [id number] REASON FOR EXAM: cp FINDINGS: The chest is unchanged compared to 11/08/2019. The heart and mediastinum are within normal limits. No active pulmonary parenchymal pleural disease. Mild elevation of the right hemidiaphragm. Degenerative changes in the shoulder joints and thoracic spine. XR/XR chest 1V portable [id number] IMPRESSION: No acute abnormality.
[2020-09-25 13:04] VITALS: RESP 20; O2SAT 95
[2020-09-25] MEDS: morphine 4 mg/mL SDV 1 mL IVP (13:04)
--- NOTE | 2020-09-25 13:06 | ED_ITS ---
HPI - Chest Pain General: Chief Complaint: Chest Pain Stated Complaint: CP Time Seen by Provider: 09/25/20 12:55 Source: patient and EMS Mode of arrival: EMS Limitations: no limitations History of Present Illness: HPI narrative: 59-year-old male has extensive cardiac history and has had multiple stents in the past. States starting 2 hours ago he is having chest pain in the center of his chest that went to the left side of his neck. He states that the pain is a pressure type pain is felt like his pain in the past. Denies any shortness of breath denies any worsening factors. States pain was improved with nitro. complaint: chest pain Onset (ago): hour(s) Timing of current episode: episodic Prior episodes: Yes Onset: during rest Pain location: substernal Pain radiation: neck Severity: moderate Quality: tightness Relieving factors: nitroglycerin Exacerbating factors: nothing Associated symptoms: Deny abdominal pain, dyspnea, fever(s), nausea or vomiting Review of Systems Const: Denies: fever(s), chills, body aches or change in appetite Eyes: Denies: blurry vision or eye discomfort ENMT: Denies: throat pain or dental pain Card: Reports: chest pain Resp: Denies: dyspnea GI: Denies: abdominal pain, nausea, vomiting or diarrhea : Denies: dysuria Musc: Denies: neck pain or back pain Skin/Breast: Denies: rash Neuro: Denies: headache(s) Psych: Denies: depression Maicol/Lymph: Denies: easy bruising All/Imm: Denies: urticaria PFSH ED PFSH: Medical History (Updated 09/25/20 @ 15:51 by Sulema Catherine MD) Aspirin allergy CAD (coronary artery disease) CHF (congestive heart failure), NYHA class I LVEF 40% grade 2 diastolic dysfunction 03/18/2017 Chronic kidney disease (CKD) Dyslipidemia Essential hypertension Obesity STEMI (ST elevation myocardial infarction) Tobacco abuse stopped smoking in 2017 Family History Mother Anesthesia complication CAD (coronary artery disease) Diabetes Hyperlipidemia Hypertension Father Anesthesia complication CAD (coronary artery disease) Chronic kidney disease (CKD) Denies family history of Clotting disorder Dementia Psychiatric illness Suicide Bleeding disorder Family history of premature coronary artery disease Lung disease Cancer Stroke Social History Smoking and tobacco status: former smoker Alcohol intake: current Physical Exam Const: COMMON NORMALS: no acute distress, patient oriented x3 and healthy appearing HENMT: COMMON NORMALS: normocephalic and atraumatic HEAD & SCALP: no rmocephalic and atraumatic Eye: COMMON NORMALS: Equal, round and reactive pupils present and EOMs intact bilaterally PUPIL: Yes Equal, round and reactive pupils present Neck/C-Spine: COMMON NORMALS: full ROM and supple Chest: COMMONS NORMALS: normal inspection of the chest and normal palpation of entire chest wall Resp: COMMON NORMALS: normal respiratory effort, No retractions, No use of accessory muscles and clear to auscultation bilaterally AUSCULTATION: clear to auscultation bilaterally Cardio: COMMON NORMALS: regular rate, regular rhythm and No murmurs present (Cardio) RATE: regular rate RHYTHM: regular rhythm GI: COMMON NORMALS: Normal to inspection, nondistended, normoactive bowel sounds present, Soft to palpation, non-tender and no masses PALPATION: Yes Soft to palpation Extremity: COMMON NORMALS: normal to inspection and full ROM Neuro: COMMON NORMALS: patient oriented x3, moves all extremities and no focal motor deficits Psych: COMMON NORMALS: mental status grossly normal, Normal thought process present and cooperative THOUGHT PROCESS: Normal thought process present Skin: COMMON NORMALS: no rashes or lesions noted and no wounds GENERAL SKIN EXAM: no rashes or lesions noted Course Vital Signs: Vital signs: Vital Signs Temperature 98.1 F 09/25/20 12:55 Pulse Rate 73 09/25/20 14:51 Respiratory Rate 16 09/25/20 14:51 Blood Pressure 104/68 09/25/20 14:51 Pulse Oximetry 98 09/25/20 14:51 MDM - Chest Pain MDM Narrative: Medical decision making narrative: 1415 spoke to patient about his lab results and informed him his first troponin enzyme did come back in normal range. I recommended admission at this time due to his multiple risk factors. Patient states that he has to get home and is not able to stay in the hospital. I informed him that I am still quite concerned he could have acute coronary syndrome with his history and would strongly recommend admission at least for observation. Patient again refused I was able to talk him into staying for a 2-hour level. 1564 patient 2-hour troponin came back unchanged. Patient still would like to leave. 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 He has no signs of pulmonary embolism. Lab Data: Labs: Lab Results 09/25/20 09/25/20 09/25/20 Range/Units 13:11 13:11 13:11 WBC 6.1 (4.0-10.0) 10^3/ uL RBC 4.72 (4.1-5.3) 10^6/u L Hgb 13.4 (11.7-16.6) g/dL Hct 42.0 (42.0-52.0) % MCV 89.0 (80-94) fL MCH 28.4 (28.0-34.0) pg MCHC 31.9 (30.0-36.0) g/dL RDW 14.6 (12.1-15.1) % Plt Count 173 (130-400) 10^3/c mm MPV 9.2 (7.4-10.4) fL Neut % (Auto) 53.2 % Lymph % (Auto) 33.0 % [place] % (Auto) 7.7 % Eos % (Auto) 4.1 % Baso % (Auto) 0.5 % Neut # (Auto) 3.26 (1.8-7.7) 10^3/u L Lymph # (Auto) 2.0 (0.8-4.8) 10^3/u L [place] # (Auto) 0.5 (0.2-0.9) 10^3/u L Eos # (Auto) 0.3 (0.0-0.8) 10^3/u L Baso # (Auto) 0.0 (0.0-0.1) 10^3/u L Nucleated RBC % (a uto) 0 % Nucleated RBCs # 0.0 /100WBC Sodium 135 L (136-145) mmol/L Potassium 4.1 (3.5-5.1) mmol/L Chloride 100 (98-107) mmol/L Carbon Dioxide 26 (22-29) mmol/L Anion Gap 13.1 (5-19) BUN 18 (6-20) mg/dL Creatinine 1.2 (0.7-1.2) mg/dL GFR Calculation 62.0 L (90-130) mL/min Glucose 95 (65-115) mg/dL Calculated Osmolal ity 282 L (285-295) mOsm/k g Calcium 9.3 (8.5-10.5) mg/dL Total Bilirubin 0.6 (0.15-1.2) mg/dL AST 20 (0-40) U/L ALT 30 (0-41) U/L Alkaline Phosphata se 55 (40-130) IU/L Troponin T Baselin e 8 (0-15) ng/L Troponin T 120 Min [place] (0-15) ng/L Delta Troponin T (0-10) ABS# Total Protein 6.2 L (6.6-8.7) g/dL Albumin 4.1 (3.5-5.2) g/dL Globulin 2.1 (1.3-4.6) g/dL 09/25/20 Range/Units 15:00 WBC (4.0-10.0) 10^3/ uL RBC (4.1-5.3) 10^6/u L Hgb (11.7-16.6) g/dL Hct (42.0-52.0) % MCV (80-94) fL MCH (28.0-34.0) pg MCHC (30.0-36.0) g/dL RDW (12.1-15.1) % Plt Count (130-400) 10^3/c mm MPV (7.4-10.4) fL Neut % (Auto) % Lymph % (Auto) % [place] % (Auto) % Eos % (Auto) % Baso % (Auto) % Neut # (Auto) (1.8-7.7) 10^3/u L Lymph # (Auto) (0.8-4.8) 10^3/u L [place] # (Auto) (0.2-0.9) 10^3/u L Eos # (Auto) (0.0-0.8) 10^3/u L Baso # (Auto) (0.0-0.1) 10^3/u L Nucleated RBC % (a uto) % Nucleated RBCs # /100WBC Sodium (136-145) mmol/L Potassium (3.5-5.1) mmol/L Chloride (98-107) mmol/L Carbon Dioxide (22-29) mmol/L Anion Gap (5-19) BUN (6-20) mg/dL Creatinine (0.7-1.2) mg/dL GFR Calculation (90-130) mL/min Glucose (65-115) mg/dL Calculated Osmolal ity (285-295) mOsm/k g Calcium (8.5-10.5) mg/dL Total Bilirubin (0.15-1.2) mg/dL AST (0-40) U/L ALT (0-41) U/L Alkaline Phosphata se (40-130) IU/L Troponin T Baselin e (0-15) ng/L Troponin T 120 Min [place] 7.70 (0-15) ng/L Delta Troponin T -0.30 L (0-10) ABS# Total Protein (6.6-8.7) g/dL Albumin (3.5-5.2) g/dL Globulin (1.3-4.6) g/dL Imaging Data^: CXR: Attestation: I personally reviewed and interpreted this imaging study as follows: Radiologist's impression: [address] [place] [address] XRay Report Signed Patient: Clifford Geronimo Unit #: [id number] : 1960 Age/Sex: 59 / M ADM Date: 09/25/20 Loc: ER Room/Bed: Attending Dr: Ordering Provider/Ordering MD: Sulema Catherine MD Date of Service: 09/25/20 Procedure(s): XR chest 1V portable [id number] Accession Number(s): [id number] Report Number: [id number] WS: [id number] XR chest 1V portable [id number] REASON FOR EXAM: cp FINDINGS: The chest is unchanged compared to 11/08/2019. The heart and mediastinum are within normal limits. No active pulmonary parenchymal pleural disease. Mild elevation of the right hemidiaphragm. Degenerative changes in the shoulder joints and thoracic spine. XR/XR chest 1V portable [id number] IMPRESSION: No acute abnormality. EKG Data^: EKG 1: Attestation: I personally reviewed and interpreted this EKG as follows: EKG interpretation date: 09/25/20 EKG interpretation time: 13:03 Interpretation: nsr hr [address] or t wave abnomalities qrs 77 qtc 417 EKG 2: Attestation: I personally reviewed and interpreted this EKG as follows: EKG interpretation date: 09/25/20 EKG interpretation time: 15:00 Interpretation: nsr hr [address] or t wave abnormalities qrs 79 qtc 410 Discharge Plan Discharge Patient Disposition: Home Clinical Impression: Chest pain Qualifiers: Chest pain type: unspecified Qualified Code(s): R07.9 - Chest pain, unspecified Condition: Stable Prescriptions: No Action morphine 30 mg tablet 30 mg PO Q6H RF: 0 ranolazine [Ranexa] 1,000 mg tablet extended release 12 hr 1,000 mg PO Q12H Qty: 180 RF: 0 alprazolam [Xanax] 1 mg Tablet 1 mg PO Q12H RF: 0 cyclobenzaprine 10 mg Tablet 10 mg PO Q12H RF: 0 atorvastatin 40 mg tablet 40 mg PO BEDTIME@1000 RF: 0 isosorbide mononitrate 30 mg tablet extended release 24 hr 30 mg PO DAILY@0800 RF: 0 losartan 25 mg tablet 25 mg PO DAILY@0800 RF: 0 metoprolol tartrate 25 mg tablet 25 mg PO BID@0800,2000 RF: 0 fenofibrate nanocrystallized 145 mg tablet 145 mg PO DAILY@0800 RF: 0 Brilinta 90 mg tablet 90 mg PO BID@0800,1999 RF: 0 nitroglycerin 0.4 mg tablet, sublingual 0.4 mg sublingual Q5M PRN (Reason: chest pains) RF: 0 furosemide 20 mg tablet 20 mg PO DAILY@0800 RF: 0 Discharge Orders: Discharge ED (Routine); Ordered 09/25/20 Ordered By: Sulema Catherine Referrals: Lizeth Calderón FNP [Primary Care Provider] - 1-3 days Discharge Diet: Advance as tolerated Discharge Activity: Resume usual activity Patient Instructions: Chest Pain (ED) Coding Level of Care Code ED Consumer Services Consultant for [facility] Fwd Exam Comprehensive
[2020-09-25 13:20] LABS: Basophils % 0.5 %; Eosinophils # 0.3 10^3/uL (0.0-0.8); Eosinophils % 4.1 %; Hemoglobin 13.4 g/dL (11.7-16.6); Mean Corpuscular HGB Conc 31.9 g/dL (30.0-36.0); Mean Corpuscular Hemoglobin 28.4 pg (28.0-34.0); Mean Platelet Volume 9.2 fL (7.4-10.4); Monocytes # 0.5 10^3/uL (0.2-0.9); Monocytes % 7.7 %; Neutrophils # 3.26 10^3/uL (1.8-7.7); Neutrophils % 53.2 %; Nucleated Red Blood Cells % 0 %; Platelet Count 173 10^3/cmm (130-400); Red Blood Count 4.72 10^6/uL (4.1-5.3); Red Cell Distribution Width 14.6 % (12.1-15.1); White Blood Count 6.1 10^3/uL (4.0-10.0)
[2020-09-25 13:41] VITALS: BP 118/60; PULSE 65; RESP 22; O2SAT 97
[2020-09-25 13:44] LABS: Alanine Aminotransferase 30 U/L (0-41); Albumin Level 4.1 g/dL (3.5-5.2); Alkaline Phosphatase 55 IU/L (40-130); Anion Gap 13.1 (5-19); Aspartate Amino Transferase 20 U/L (0-40); Blood Urea Nitrogen 18 mg/dL (6-20); Calcium 9.3 mg/dL (8.5-10.5); Carbon Dioxide 26 mmol/L (22-29); Chloride 100 mmol/L (98-107); Globulin 2.1 g/dL (1.3-4.6); Glucose 95 mg/dL (65-115); Osmolality Calculated 282 mOsm/kg (285-295); Potassium 4.1 mmol/L (3.5-5.1); Sodium 135 mmol/L (136-145); Total Bilirubin 0.6 mg/dL (0.15-1.2); Total Protein 6.2 g/dL (6.6-8.7)
[2020-09-25 13:47] LABS: Troponin(5th) Baseline 8 ng/L (0-15)
[2020-09-25 14:21] VITALS: BP 116/71; PULSE 67; RESP 18; O2SAT 97
[2020-09-25 14:51] VITALS: BP 104/68; PULSE 73; RESP 16; O2SAT 98
--- NOTE | 2020-09-25 14:55 | ECG_ITS ---
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 Measurements Intervals [place] Rate: 75 P: 42 PA: 169 QRS: 17 QRSD: 79 T: 20 QT: 381 QTc: 427 Interpretive Statements SINUS RHYTHM LOW QRS VOLTAGE IN PRECORDIAL LEADS [QRS DEFLECTION < 1.0 mV IN CHEST LEADS] Compared to ECG 09/25/2020 13:03:27 No significant changes Electronically Signed On 09-25-2020 19:43:41 WATCH LEADER by Padmini Rey M.D. [email or web address]/[id number]
[2020-09-25 15:57] VITALS: BP 105/68; PULSE 63; RESP 21; O2SAT 97
== END 2020-09-25 15:58 | disposition home or self-care (01) ==
PROVIDERS: Emergency Provider Emergency Medicine; PCP Nurse Practitioner Family
DX: R07.9 Chest pain, unspecified (principal); I25.10 Atherosclerotic heart disease of native coronary artery without angina pectoris; I11.0 Hypertensive heart disease with heart failure; I50.9 Heart failure, unspecified; E78.5 Hyperlipidemia, unspecified; I25.2 Old myocardial infarction; Z87.891 Personal history of nicotine dependence
CPT/HCPCS: 12345; 71045; 80053; 84484; 85025; 93005; 96374; 99283; 99284; J2270

== ENCOUNTER 2020-10-02 14:18 | Outpatient (CLI) | payer BC, SELFPAY | END 2020-10-02 14:19 | disposition home or self-care (01) | LOC: WOUND 14:18 | PROVIDERS: PCP Nurse Practitioner Family; Visit Provider Thoracic Surgery (Cardiothoracic Vascular Surgery) | DX: L85.3 Xerosis cutis (principal) | CPT/HCPCS: G0463 ==

== ENCOUNTER 2020-10-09 10:10 | Outpatient (CLI) | payer BC, SELFPAY | END 2020-10-09 10:11 | disposition home or self-care (01) | LOC: WOUND 10:10 | PROVIDERS: PCP Nurse Practitioner Family; Visit Provider Nurse Practitioner Family | DX: Z09 Encounter for follow-up examination after completed treatment for conditions other than malignant neoplasm (principal) | CPT/HCPCS: 99212 ==

== ENCOUNTER 2021-02-10 13:16 | Outpatient (CLI) | payer MEDICARE, OTHER, SELFPAY ==
--- NOTE | 2021-02-10 13:21 | USCV_ITS ---
Clifford Geronimo Age: 60 Gender: M : 1960 Exam Date: 02/10/2021 13:37 Ordering Phys: Lizeth Calderón Technologist: Bahman Steele Exam Location: [facility] [place] [place] Indication: Risk Factors: Previous Vascular Surgery: Right Brachial BP: / Left Brachial BP: / Right Left Velocity (cm/s) Spectral Plaque Velocity (cm/s) Spectral Plaque Syst/Diast Broadening Syst/Diast Broadening 80.50/ 13.20 Prox CCA 75.20 / 15.40 73.90/ 19.80 Mid CCA 84.60 / 11.10 70.60/ 14.30 Distal CCA 79.50 / 16.20 101.00/28.00 Prox ICA 113.10/ 18.40 91.70/ 34.20 Mid ICA 111.70/ 18.40 105.60/35.70 Distal ICA 99.90 / 26.30 144.50 ECA 177.50 1.31 ICA/CCA 1.34 Antegrade Vertebral Antegrade 54.60/ 8.50 cm/s / cm/s Tri Subclavian Tri 105.1 101.0 0 0 FINDINGS Comparison: none available. No significant elevation of systolic or diastolic velocities. Waveforms are normal. Minimal bilateral, intimal thickening with no elevation of velocity. CONCLUSIONS Bilateral ICA stenosis less than 15%. Dr. aJne Dhillon DO (Electronically Signed) Final Date: 10 February 2021 16:05 S
== END 2021-02-10 13:17 | disposition home or self-care (01) ==
LOC: US 13:17
PROVIDERS: PCP Nurse Practitioner Family; Visit Provider Nurse Practitioner Family
DX: I25.10 Atherosclerotic heart disease of native coronary artery without angina pectoris (principal); I65.23 Occlusion and stenosis of bilateral carotid arteries
CPT/HCPCS: 93880

== ENCOUNTER → 2022-01-14 13:44 | Outpatient (BNVA) | payer MEDICARE, SELFPAY | PROVIDERS: PCP Nurse Practitioner Family; Visit Provider Internal Medicine Cardiovascular Disease | DX: I87.2 Venous insufficiency (chronic) (peripheral) (principal); I25.118 Atherosclerotic heart disease of native coronary artery with other forms of angina pectoris; I11.0 Hypertensive heart disease with heart failure; I50.32 Chronic diastolic (congestive) heart failure | CPT/HCPCS: 99214 ==

== ENCOUNTER 2022-03-13 12:24 | Outpatient (CLI) | payer MEDICARE, SELFPAY ==
--- NOTE | 2022-03-13 13:15 | USCV_ITS ---
Clifford Geronimo Age: 61 Gender: M : 1960 Exam Date: 03/13/2022 12:51 Ordering Phys: Hanh Blankenship MD ([email or web address]) Technologist: Bahman Steele Exam Location: [facility] [place] Indication: HISTORY: PROCEDURES: Bilateral duplex Venous Insufficiency study of the Deep and Superficial systems was carried out according to normal protocol with the patient in supine positon for deep system and dependent position for the superficial system. FINDINGS: All deep veins demonstrated compressibility without evidence of intraluminal thrombus or increased echogenicity. Spectral analysis of Doppler signals demonstrates normal response to compression maneuvers indicating patency without obstruction. Reflux determinations were made with the patient in the dependent position, the weight being on the contralateral leg. No notable reflux was seen at this time. CONCLUSIONS No evidence of DVT in the above-mentioned identifiable veins. No significant reflux either in the deep or in the superficial veins, based on the above finding Dr Padmini Rey MD [facility] (Electronically Signed) Final Date: 13 Mar 2022 15:33 S
== END 2022-03-13 12:25 | disposition home or self-care (01) ==
LOC: RAD 12:31
PROVIDERS: PCP Nurse Practitioner Family; Visit Provider Internal Medicine Cardiovascular Disease
DX: I87.2 Venous insufficiency (chronic) (peripheral) (principal)
CPT/HCPCS: 93970

== ENCOUNTER → 2022-03-19 09:00 | Outpatient (BNVA) | payer MEDICARE, SELFPAY | PROVIDERS: PCP Nurse Practitioner Family; Visit Provider Surgery | DX: Z12.11 Encounter for screening for malignant neoplasm of colon (principal) | CPT/HCPCS: 99024 ==

== ENCOUNTER → 2022-04-14 13:16 | Outpatient (BNVA) | payer MEDICARE, SELFPAY | PROVIDERS: PCP Nurse Practitioner Family; Visit Provider Orthopaedic Surgery | DX: M48.062 Spinal stenosis, lumbar region with neurogenic claudication (principal) | CPT/HCPCS: 72110; 99204 ==

== ENCOUNTER 2022-05-13 08:33 | Outpatient (CLI) | payer MEDICARE, SELFPAY ==
--- NOTE | 2022-05-13 08:45 | MR_ITS ---
WS: [id number] MRI LUMBAR SPINE NONCONTRAST TECHNIQUE: Sagittal T1, T2 and STIR imaging. Axial T1 and T2 imaging. CLINICAL INFORMATION: pain COMPARISON: MRI 2018 FINDINGS: Mild lumbar curve. No acute compression. No high-grade central canal stenosis. Mild annular bulging L 4-L5 and L5-S1. Remote appearing RIGHT L5-S1 hemilaminectomy. L1-L2: Normal. L2-L3: Mild LEFT foraminal narrowing. Spinal canal and foramen are patent. L3-L4: Mild annular bulging. Mild central canal stenosis. LEFT foraminal protrusion impinges the exit ing LEFT L3 nerve root. Mild LEFT foraminal narrowing. Moderate facet arthropathy. Mild RIGHT foramin al narrowing. L4-L5: Mild annular bulging. Moderate facet arthropathy. Mild LEFT foraminal narrowing. L5-S1: Remote RIGHT hemilaminectomy. RIGHT eccentric disc osteophytic ridging with mild RIGHT foramin al narrowing. Slight narrowing of the RIGHT subarticular recess. LEFT foramen is patent. Mild facet a rthropathy. Visualized pelvic bony structures: Normal. Paravertebral soft tissues: Normal. Adrenal glands are normal. Small RIGHT renal cyst measuring 11 mm. MR/MR lumbar spine wo con* [id number] IMPRESSION: 1. Mild central canal stenosis L3-L4 due to mild annular bulging with facet ar thropathy and ligamentum flavum hypertrophy. Narrowing of the subarticular rece ss bilaterally. This appears slightly progressed compared to previous. 2. Small LEFT proximal foraminal protrusion L3-L4 with slight impingement on t he exiting LEFT L3 nerve root appears progressed. 3. Mild LEFT L4-L5 foraminal narrowing with small LEFT foraminal protrusion al so progressed compared to previous. 4. Moderate facet arthropathy L3-L4 and L4-L5. 5. Remote appearing right L5-S1 hemilaminectomy. Slight narrowing of the righ t subarticular recess without significant nerve root impingement. Mild right fo raminal narrowing
== END 2022-05-13 08:34 | disposition home or self-care (01) ==
PROVIDERS: Visit Provider Orthopaedic Surgery
DX: M48.061 Spinal stenosis, lumbar region without neurogenic claudication (principal); M47.816 Spondylosis without myelopathy or radiculopathy, lumbar region; M51.26 Other intervertebral disc displacement, lumbar region
CPT/HCPCS: 72148

== ENCOUNTER → 2022-05-19 09:59 | Outpatient (BNVA) | payer MEDICARE, SELFPAY | PROVIDERS: Visit Provider Orthopaedic Surgery | DX: M48.062 Spinal stenosis, lumbar region with neurogenic claudication (principal) | CPT/HCPCS: 99214 ==

== ENCOUNTER → 2022-06-11 08:46 | Outpatient (BNVA) | payer MEDICARE, SELFPAY | PROVIDERS: PCP Nurse Practitioner Family; Visit Provider Anesthesiology Pain Medicine | DX: M79.604 Pain in right leg (principal); M79.605 Pain in left leg; Z87.891 Personal history of nicotine dependence; M48.062 Spinal stenosis, lumbar region with neurogenic claudication; M47.816 Spondylosis without myelopathy or radiculopathy, lumbar region; M51.16 Intervertebral disc disorders with radiculopathy, lumbar region | CPT/HCPCS: 99204 ==

== ENCOUNTER 2022-06-16 23:28 | Emergency (ER) | payer MEDICARE, SELFPAY ==
[2022-06-16 23:31] VITALS: BMI 61.5
[2022-06-16 23:34] VITALS: BP 151/82; PULSE 72; RESP 16; TEMP 36.7; O2SAT 95
--- NOTE | 2022-06-16 23:43 | ED_ITS ---
HPI - Back Pain/Injury General: Chief Complaint: Back Pain/Injury Stated Complaint: BACK PAIN Time Seen by Provider: 06/16/22 23:31 History of Present Illness: 61-year-old male patient comes in today for complaints of low back pain radiating down his left leg. This is a chronic condition for patient. Patient reports Wednesday he had reached over to pick something up and aggravated his low back pain. Since then patient has had increasing pain and discomfort. Patient is to have injections for his chronic back pain tomorrow. Patient at this time takes gabapentin and cyclobenzaprine for his pain along with acetaminophen. Patient has a history of coronary artery disease, venous insufficiency, dyslipidemia, and CHF. Associated symptoms: Deny fever(s), nausea or vomiting Review of Systems General: Reports: 10 or more systems reviewed and unremarkable except in HPI and below Const: Denies: fever(s) Card: Denies: chest pain Resp: Denies: dyspnea GI: Denies: nausea or vomiting : Denies: difficulty urinating Musc: Reports: back pain Skin/Breast: Denies: rash PFSH ED PFSH: Medical History Aspirin allergy CAD (coronary artery disease) CHF (congestive heart failure), NYHA class I LVEF 40% grade 2 diastolic dysfunction 03/18/2017 Chronic kidney disease (CKD) Chronic venous insufficiency of lower extremity Dyslipidemia Essential hypertension Obesity STEMI (ST elevation myocardial infarction) Tobacco abuse stopped smoking in 2017 Family History Mother Anesthesia complication CAD (coronary artery disease) Diabetes Hyperlipidemia Hypertension Father Anesthesia complication CAD (coronary artery disease) Chronic kidney disease (CKD) Denies family history of Clotting disorder Dementia Psychiatric illness Suicide Bleeding disorder Family history of premature coronary artery disease Lung disease Cancer Stroke Social History (Updated 06/11/22 @ 09:40 by Pamella Carlson LPN) Smoking and tobacco status: former smoker Second hand smoke exposure: Yes Alcohol intake: current Alcohol intake frequency: holidays/special occasions only Alcohol type: hard liquor History of recent travel: No Physical Exam Const: COMMON NORMALS: alert HENMT: COMMON NORMALS: normocephalic HEAD & SCALP: normocephalic Neck/C-Spine: COMMON NORMALS: full ROM Resp: COMMON NORMALS: normal respiratory effort Cardio: COMMON NORMALS: regular rate RATE: regular rate GI: COMMON NORMALS: non-tender Back/Pelvis: LUMBAR SPINE/LOWER BACK: Yes paraspinal muscle tenderness Lumbar paraspinal muscle tenderness: left Neuro: SENSORIUM/ORIENTATION: Yes alert Skin: COMMON NORMALS: no rashes or lesions noted GENERAL SKIN EXAM: no rashes or lesions noted Course Vital Signs: Vital signs: Vital Signs Temperature 98.0 F 06/16/22 23:34 Pulse Rate 72 06/16/22 23:34 Respiratory Rate 16 06/17/22 00:42 Blood Pressure 114/69 06/17/22 00:44 Pulse Oximetry 95 06/16/22 23:34 Oxygen Delivery Me thod 06/16/22 23:34 MDM - Back Pain/Injury Medical Decision Making 61-year-old male patient comes in today for complaints of low back pain radiating down left leg. On exam patient has tenderness in his lower back on the left side. Patient has a positive leg lift test on the left side. Patient denies any loss of bowel or bladder control. Differential diagnosis includes but not limited to facet arthropathy, intervertebral disc disease, lumbar radiculopathy, muscle strain. Feel the patient probably has exacerbation of his chronic back pain. Patient was given 8 mg of morphine IM in the ER. Patient should continue with his routine care recommendations by his pain specialist. Patient was written for 9 tablets of hydrocodone 5?325 acetaminophen for severe pain. patient reported understanding of care plan need for follow-up or return to the ER. Discharge Plan Discharge Clinical Impression: Lumbar stenosis with neurogenic claudication Back pain Qualifiers: Back pain location: low back pain Chronicity: unspecified Back pain laterality: left Sciatica presence: with sciatica Sciatica laterality: sciatica of left side Qualified Code(s): M54.42 - Lumbago with sciatica, left side Condition: Stable Prescriptions: New hydrocodone-acetaminophen 5-325 mg tablet 1 tab PO Q8H PRN (Reason: pain (scale score 7-10)) Qty: 9 0RF No Action ketoconazole 2 % shampoo 1 applic topical .2 x weekly Qty: 120 3RF Rx Instructions: Lather into scalp 2 times weekly. Allow to sit on scalp for 5 minutes before rinsing. triamcinolone acetonide 0.1 % ointment 1 applic topical BID Qty: 453.6 1RF Rx Instructions: to lower legs no more than 3 wks/mo ketoconazole 2 % cream 1 applic topical BID Qty: 60 1RF Rx Instructions: to red scaly areas on face ,ears, scalp BID for 3 weeks then daily furosemide 80 mg tablet 80 mg PO DAILY PRN acetaminophen [Tylenol Extra Strength] 500 mg tablet 500 mg PO Q6H PRN gabapentin 300 mg capsule 300 mg PO TID Qty: 90 0RF Vit D PO nitroglycerin 0.4 mg tablet, sublingual 0.4 mg sublingual Q5M PRN (Reason: chest pains) Qty: 25 3RF Brilinta 90 mg tablet 90 mg PO BID@0800,2000 Qty: 180 3RF amlodipine 5 mg tablet 5 mg PO DAILY Qty: 90 3RF isosorbide mononitrate 30 mg tablet extended release 24 hr 30 mg PO DAILY@0800 Qty: 90 1RF ranolazine [Ranexa] 1,000 mg tablet extended release 12 hr 1,000 mg PO Q12H Qty: 180 3RF Rx Instructions: take at 0800 and 2000 fenofibrate nanocrystallized 145 mg tablet 145 mg PO DAILY@0800 Qty: 90 1RF metoprolol tartrate 25 mg tablet 25 mg PO BID Qty: 180 1RF alprazolam [Xanax] 1 mg Tablet 1 mg PO Q12H Rx Instructions: take at 0800 and 2000 cyclobenzaprine 10 mg Tablet 10 mg PO Q12H Rx Instructions: take at 0800 and 2000 atorvastatin 40 mg tablet 40 mg PO BEDTIME@1000 furosemide 20 mg tablet 20 mg PO DAILY@0800 Discharge Orders: Discharge ED (Routine); Ordered 06/16/22 Ordered By: Sancho Clarke Other Ambulatory Orders: DME: Walker (Order) Location: None Selected Ordered By: Sancho Clarke Referrals: Michael Marquez FNP [Primary Care Provider] - Discharge Diet: Usual diet Discharge Activity: Increase activity as tolerated Patient Instructions: Back Pain (ED) Activity Restrictions/Additional Instructions: Use a walker to help with ambulation. It is important to stay as active as she can. Continue with acetaminophen to help control pain. Use hydrocodone for severe pain. Continue with your other recommended medications as prescribed. Follow-up with pain ambulatory care nurse for further evaluation and treatment. Return to ER for new concerns such as high fever greater than 100.4, blood in vomit or stool, or loss of bowel or bladder control. Coding Level of Care Code ED Digital Media Intern for Chg Fwd Exam Comprehensive
[2022-06-16 23:59] VITALS: RESP 18
[2022-06-16] MEDS: morphine 4 mg/mL SDV 1 mL IM (23:59)
[2022-06-17 00:42] VITALS: RESP 16
[2022-06-17] MEDS: morphine 4 mg/mL SDV 1 mL IM (00:42)
[2022-06-17 00:44] VITALS: BP 114/69
--- NOTE | 2022-06-17 00:44 | PC.NURSE ---
Attempted to get pt up. Pt states he is unable to stand. Sat pt up on side of bed. Pt attempted to stand, but was unable to. [place] Clarke notified. Walker ordered, more pain meds given.
[2022-06-17 02:09] VITALS: BP 134/79; PULSE 85; RESP 16; O2SAT 95
--- NOTE | 2022-06-17 02:15 | PC.NURSE ---
Previous discharge note was documented in error. DC note at 0210 is correct.
== END 2022-06-17 02:14 | disposition home or self-care (01) ==
PROVIDERS: Emergency Provider Nurse Practitioner Family; PCP Nurse Practitioner Family
DX: M54.42 Lumbago with sciatica, left side (principal); M48.062 Spinal stenosis, lumbar region with neurogenic claudication; Z87.891 Personal history of nicotine dependence; I25.10 Atherosclerotic heart disease of native coronary artery without angina pectoris; I11.0 Hypertensive heart disease with heart failure; I50.9 Heart failure, unspecified; E78.5 Hyperlipidemia, unspecified; I25.2 Old myocardial infarction
CPT/HCPCS: 96372; 99284; J2270

== ENCOUNTER → 2022-06-17 14:06 | Outpatient (BNVA) | payer MEDICARE, SELFPAY | PROVIDERS: PCP Nurse Practitioner Family; Visit Provider Anesthesiology Pain Medicine | DX: M47.816 Spondylosis without myelopathy or radiculopathy, lumbar region (principal); M54.42 Lumbago with sciatica, left side; Z87.891 Personal history of nicotine dependence | CPT/HCPCS: 64493; 64494; 64495 ==

== ENCOUNTER 2022-06-19 14:38 | Outpatient (CLI) | payer MEDICARE, SELFPAY ==
--- NOTE | 2022-06-19 15:15 | USCV_ITS ---
Clifford Geronimo Age: 61 Gender: M : 1960 Exam Date: 06/19/2022 14:46 Ordering Phys: Michael Marquez Technologist: Angela Lerma [place] [facility] [place]: Chronic diastoli heart failure BP: 114 / 70 HR: 72 Rhythm: Sinus Technical Quality: Technically difficult study MEASUREMENTS (Male / Female) Normal Values 2D ECHO LV Diastolic Diameter PLAX 4.4 cm 4.2 - 5.9 / 3.9 - 5.3 cm LV Systolic Diameter PLAX 3.6 cm LV Chamber Size 2.8 cm IVS Diastolic Thickness 1.1 cm 0.6 - 1.0 / 0.6 - 0.9 cm IVS Systolic Thickness 1.3 cm LVPW Diastolic Thickness 1.2 cm 0.6 - 1.0 / 0.6 - 0.9 cm LVPW Systolic Thickness 1.6 cm RV Chamber Size 2.4 cm LVOT Diameter 2.1 cm LV Ejection Fraction 2D Teich 35.1 % LV Ejection Fraction MOD 2C 48.2 % LV Ejection Fraction 2C AL 53.7 % LA Diameter 3.0 cm LA Width 3.0 cm LA Height 3.6 cm RA Width 3.1 cm RA Height 3.2 cm Aorta at Sinotubular Diameter 3.0 cm IVC Diameter 2.5 cm M-MODE Aortic Annulus Diameter 3.7 cm LA Ao Ratio MM 1.0 MV E Point Septal Separation 0.4 cm DOPPLER AV Peak Velocity 161.0 cm/s LVOT Peak Velocity 86.0 cm/s AV Area Cont Eq vti 2.1 cm squared AV Area Cont Eq pk 1.8 cm squared MV Area PHT 2.6 cm squared Mitral E to A Ratio 1.3 MV E' Velocity 44.0 cm/s Mitral E to MV E' Ratio 5.9 Mitral E to LV E' Lateral Ratio 5.3 Mitral E to LV E' Septal Ratio 6.6 TR Peak Velocity 155.0 cm/s TR Peak Gradient 9.6 mmHg TR Mean Velocity 118.2 cm/s TR Mean Gradient 6.3 mmHg TR Velocity Time Integral 34.9 cm TV Peak E Velocity 59.0 cm/s Right Atrial Pressure 3.0 mmHg Pulmonary Artery Systolic Pressu 12.6 mmHg RV Acceleration Time 0.4 s RV Ejection Time 0.2 s RV AcT/ET 2.2 FINDINGS Left Ventricle Normal left ventricular cavity size and systolic function. Left ventricular ejection fraction is estimated at 55-60 %. No diagnostic regional wall motion abnormalities based on this TDS study. Normal diastolic function. Right Ventricle Probably normal right ventricular size and systolic function. Right ventricular systolic pressure 12.6 mmHg. Right Atrium Right atrium not well visualized. Normal right atrial size. Left Atrium Normal left atrial size. Mitral Valve Structurally normal mitral valve. No mitral valve stenosis. No mitral valve regurgitation. Aortic Valve Aortic valve not well visualized. No aortic valve stenosis. No aortic valve regurgitation. Tricuspid Valve Structurally normal tricuspid valve. Pulmonic Valve Pulmonic valve not well visualized. Pericardium No pericardial effusion. Aorta Normal size aortic root. IVC Inferior vena cava not visualized. CONCLUSIONS 1. Normal left ventricular cavity size and systolic function. Left ventricular ejection fraction is estimated at 55-60 %. No diagnostic regional wall motion abnormalities based on this TDS study. Normal diastolic function. 2. No significant valvular abnormality. 3. When compared to previous study report LV function seems to have improved. Hanh Blankenship MD (Electronically Signed) Final Date: 19 June 2022 17:46 S
== END 2022-06-19 14:39 | disposition home or self-care (01) ==
LOC: RAD 14:39
PROVIDERS: PCP Nurse Practitioner Family; Visit Provider Nurse Practitioner Family
DX: I50.32 Chronic diastolic (congestive) heart failure (principal)
CPT/HCPCS: 93306

== ENCOUNTER → 2022-07-01 14:01 | Outpatient (BNVA) | payer MEDICARE, SELFPAY | PROVIDERS: PCP Nurse Practitioner Family; Visit Provider Anesthesiology Pain Medicine | DX: M47.816 Spondylosis without myelopathy or radiculopathy, lumbar region (principal); M48.062 Spinal stenosis, lumbar region with neurogenic claudication; Z87.891 Personal history of nicotine dependence | CPT/HCPCS: 64493; 64494; 64495; J3490 ==

== ENCOUNTER → 2022-07-15 10:54 | Outpatient (BNVA) | payer MEDICARE, SELFPAY | PROVIDERS: PCP Nurse Practitioner Family; Visit Provider Anesthesiology Pain Medicine | DX: R07.9 Chest pain, unspecified (principal); I25.118 Atherosclerotic heart disease of native coronary artery with other forms of angina pectoris; I11.0 Hypertensive heart disease with heart failure; I50.32 Chronic diastolic (congestive) heart failure; I87.2 Venous insufficiency (chronic) (peripheral); Z87.891 Personal history of nicotine dependence; M48.062 Spinal stenosis, lumbar region with neurogenic claudication; M47.816 Spondylosis without myelopathy or radiculopathy, lumbar region; M51.16 Intervertebral disc disorders with radiculopathy, lumbar region; M79.604 Pain in right leg; M79.605 Pain in left leg | CPT/HCPCS: 99214 ==

== ENCOUNTER → 2022-08-17 13:39 | Outpatient (BNVA) | payer MEDICARE, SELFPAY | PROVIDERS: PCP Nurse Practitioner Family; Visit Provider Anesthesiology Pain Medicine | DX: M54.16 Radiculopathy, lumbar region (principal); M48.062 Spinal stenosis, lumbar region with neurogenic claudication; Z87.891 Personal history of nicotine dependence | CPT/HCPCS: 64483; 64484; J1100; J3490 ==

== ENCOUNTER → 2022-09-16 10:51 | Outpatient (BNVA) | payer MEDICARE, SELFPAY | PROVIDERS: PCP Nurse Practitioner Family; Visit Provider Anesthesiology Pain Medicine | DX: M48.062 Spinal stenosis, lumbar region with neurogenic claudication (principal); M47.816 Spondylosis without myelopathy or radiculopathy, lumbar region; M51.16 Intervertebral disc disorders with radiculopathy, lumbar region; M79.604 Pain in right leg; M79.605 Pain in left leg; Z87.891 Personal history of nicotine dependence | CPT/HCPCS: 99214 ==

== ENCOUNTER 2022-09-30 08:42 | Outpatient (CLI) | payer MEDICARE, SELFPAY ==
--- NOTE | 2022-09-30 08:53 | ECG_ITS ---
[facility] Test Date: 2022-09-30 Pat Name: Clifford Geronimo Department: Room: Gender: Male Paper Counter: : 1960 Requested By: Hanh Blankenship Order Number: [id number] Jennifer MD: Hanh Blankenship M.D. Interpretive Statements NAME OF STUDY: LEXISCAN SESTAMIBI STRESS TEST INDICATION: Chest Pain PROCEDURE: At the baseline, the blood pressure was 114/84 mmHg with a heart rate of 57 bpm. The electrocardiogram showed sinus rhythm, normal axis with normal ST-T's. The Lexiscan was infused over a period of 20 seconds. A total of 0.4 milligrams of Lexiscan was infused. The stress phase was continued for a total of 5 minutes. Heart rate at the end of the stress phase was 69 bpm with a blood pressure of 115/76 mmHg. The EKG at the peak infusion revealed sinus rhythm with no significant ST-T wave changes. The study was terminated due to protocol completion. Sestamibi was injected 20 seconds after the Lexiscan infusion. Blood pressure at the end of the recovery phase was 112/82 mmHg with a heart rate of 81 beats per minute. CONCLUSION: 1. Normal EKG response to LexiScan infusion. 2. No LexiScan induced chest pain or cardiac arrhythmia. 3. Normal blood pressure and heart rate response. 4. Sestamibi/sestamibi perfusion scan pending; see separate report. Electronically Signed On 10-01-2022 15:41:06 SAP BUSINESS ANALYST by Hanh Blankenship M.D. [id number]
--- NOTE | 2022-09-30 08:53 | NMCV_ITS ---
NM eugene perf SPECT r/s* [id number] Clifford Geronimo Age: 61 Gender: M : 1960 Exam Date: 09/30/2022 09:55 Ordering Phys: Hanh Blankenship MD ([email or web address]) Technologist: GREG Patterson Exam Location: [facility] Indications: CHEST PAIN STRESS TEST Please see separate stress test report in [facility] for full findings IMAGE PROTOCOL Rest/Stress 1 Lexiscan Day Radiopharmaceutical Dose (mCi) Administration Site Administered by Rest: Tc-99m 10.8 IV GREG Botello Sestamibi Stress:Tc-99m 33.0 IV GREG Botello Sestamibi Rest: 30-Sep-2022 60 Discovery 630 Stress: 30-Sep-2022 30 Discovery 630 0.4mg Lexiscan. Supine position only as patient was unable to lay prone. SPECT RESULTS Technical Quality: Excellent Raw Data Analysis: Normal Image Corrections: No attenuation or motion correction applied Summed Stress Score: 0 Summed Rest Score: 3 Summed Difference Score: 0 PERFUSION FINDINGS Small sized perfusion abnormality of mild severity of apical septal tear, apical anterior and apical stapleton at rest images with improved tracer uptake on stress images. This is suggestive of attenuation artifact. FUNCTIONAL RESULTS (calculated via Gated SPECT) Stress Image LV EF (%): 63 Stress EDV (mL):103 TID: 1.1 Stress ESV (mL):38 FUNCTIONAL FINDINGS: The left ventricle is normal in size. Transient Ischemia Dilatation of 1.1. There is normal left ventricular systolic function. The left ventricular ejection fraction is normal with a value of 63%. There is normal left ventricular wall thickening. IMPRESSIONS 1. Myocardial perfusion imaging is normal. Attenuation artifact noted in apical anterior, apical septal and apical stapleton. 2. Overall left ventricular systolic function is normal without regional wall motion abnormalities, LVEF=63%. 3. No significant EKG changes with Lexiscan infusion. 4. Scan indicates low risk for cardiac events. Hanh Blankenship MD (Electronically Signed) Final Date: 01 October 2022 15:44 S
[2022-09-30 09:09] VITALS: BMI 47.5
[2022-09-30] MEDS: regadenoson 0.4 Mg/5 ml Syringe IVP (10:23)
[2022-09-30 10:41] VITALS: BP 117/81; PULSE 68
== END 2022-09-30 08:43 | disposition home or self-care (01) ==
PROVIDERS: PCP Nurse Practitioner Family; Visit Provider Internal Medicine Cardiovascular Disease
DX: R07.89 Other chest pain (principal)
CPT/HCPCS: 36415; 78452; 93017; 96374; A9500; J2785

== ENCOUNTER → 2022-10-06 10:38 | Outpatient (BNVA) | payer MEDICARE, SELFPAY | PROVIDERS: PCP Nurse Practitioner Family; Visit Provider Anesthesiology Pain Medicine | DX: M48.062 Spinal stenosis, lumbar region with neurogenic claudication (principal); M47.816 Spondylosis without myelopathy or radiculopathy, lumbar region; M51.16 Intervertebral disc disorders with radiculopathy, lumbar region; M79.604 Pain in right leg; M79.605 Pain in left leg | CPT/HCPCS: 99214 ==

== ENCOUNTER → 2022-10-27 10:51 | Outpatient (BNVA) | payer MEDICARE, SELFPAY | PROVIDERS: PCP Nurse Practitioner Family; Visit Provider Anesthesiology Pain Medicine | DX: M17.11 Unilateral primary osteoarthritis, right knee (principal); M25.561 Pain in right knee; M48.062 Spinal stenosis, lumbar region with neurogenic claudication; M47.816 Spondylosis without myelopathy or radiculopathy, lumbar region; M51.16 Intervertebral disc disorders with radiculopathy, lumbar region; M25.569 Pain in unspecified knee; M17.0 Bilateral primary osteoarthritis of knee | CPT/HCPCS: 73564; 99214 ==

== ENCOUNTER → 2022-12-24 10:45 | Outpatient (BNVA) | payer MEDICARE, SELFPAY | PROVIDERS: PCP Nurse Practitioner Family; Visit Provider Anesthesiology Pain Medicine | DX: M48.062 Spinal stenosis, lumbar region with neurogenic claudication (principal); M47.816 Spondylosis without myelopathy or radiculopathy, lumbar region; M51.16 Intervertebral disc disorders with radiculopathy, lumbar region; M17.0 Bilateral primary osteoarthritis of knee | CPT/HCPCS: 99214 ==

== ENCOUNTER → 2023-01-13 12:52 | Outpatient (BNVA) | payer MEDICARE, SELFPAY | PROVIDERS: PCP Nurse Practitioner Family; Visit Provider Anesthesiology Pain Medicine | DX: M47.816 Spondylosis without myelopathy or radiculopathy, lumbar region (principal); M48.062 Spinal stenosis, lumbar region with neurogenic claudication | CPT/HCPCS: 64493; 64494; 64495; J3490 ==

== ENCOUNTER → 2023-01-15 12:26 | Outpatient (BNVA) | payer MEDICARE, SELFPAY | PROVIDERS: PCP Nurse Practitioner Family; Referring Provider Anesthesiology Pain Medicine; Visit Provider Student in an Organized Health Care Education/Training Program | DX: M17.0 Bilateral primary osteoarthritis of knee (principal) | CPT/HCPCS: 20610; 99204; L1851 ==

== ENCOUNTER → 2023-01-15 13:06 | Outpatient (BNVA) | payer MEDICARE, SELFPAY | PROVIDERS: PCP Nurse Practitioner Family; Referring Provider Anesthesiology Pain Medicine; Visit Provider Student in an Organized Health Care Education/Training Program | DX: M17.0 Bilateral primary osteoarthritis of knee (principal) | CPT/HCPCS: 73560; 73565 ==

== ENCOUNTER → 2023-02-01 13:53 | Outpatient (BNVA) | payer MEDICARE, SELFPAY | PROVIDERS: PCP Nurse Practitioner Family; Visit Provider Anesthesiology Pain Medicine | DX: M47.816 Spondylosis without myelopathy or radiculopathy, lumbar region (principal); M48.062 Spinal stenosis, lumbar region with neurogenic claudication | CPT/HCPCS: 64493; 64494; 64495; J3490 ==

== ENCOUNTER → 2023-02-22 08:44 | Outpatient (BNVA) | payer MEDICARE, SELFPAY | PROVIDERS: PCP Nurse Practitioner Family; Visit Provider Anesthesiology Pain Medicine | DX: M17.0 Bilateral primary osteoarthritis of knee (principal); M48.062 Spinal stenosis, lumbar region with neurogenic claudication; M47.816 Spondylosis without myelopathy or radiculopathy, lumbar region; M51.16 Intervertebral disc disorders with radiculopathy, lumbar region | CPT/HCPCS: 20610; 99214; J3301; J7318 ==

== ENCOUNTER → 2023-03-10 15:14 | Outpatient (BNVA) | payer MEDICARE, SELFPAY | PROVIDERS: PCP Nurse Practitioner Family; Visit Provider Internal Medicine Cardiovascular Disease | DX: I11.0 Hypertensive heart disease with heart failure (principal); I50.9 Heart failure, unspecified; I25.118 Atherosclerotic heart disease of native coronary artery with other forms of angina pectoris; I87.2 Venous insufficiency (chronic) (peripheral); Z87.891 Personal history of nicotine dependence | CPT/HCPCS: 99214 ==

== ENCOUNTER → 2023-03-16 13:24 | Outpatient (BNVA) | payer MEDICARE, SELFPAY | PROVIDERS: PCP Nurse Practitioner Family; Visit Provider Anesthesiology Pain Medicine | DX: M47.816 Spondylosis without myelopathy or radiculopathy, lumbar region (principal) | CPT/HCPCS: 64635; 64636; J1030 ==

== ENCOUNTER 2023-03-17 09:58 | Outpatient (CLI) | payer MEDICARE, SELFPAY ==
[2023-03-17 11:39] LABS: Alanine Aminotransferase 33 U/L (0-41); Albumin Level 4.1 g/dL (3.5-5.2); Alkaline Phosphatase 69 U/L (40-130); Aspartate Amino Transferase 19 U/L (0-40); Blood Urea Nitrogen 22 mg/dL (8-23); Calcium 9.1 mg/dL (8.5-10.5); Carbon Dioxide 25 mmol/L (22-29); Chloride 110 mmol/L (98-107); Chol HDL Ratio 4.98 mg/dL (1.0-5.00); Cholesterol 244 mg/dL (0-200); Globulin 2.8 g/dL (1.3-4.6); Glomerular Filtration Rate 55.9 mL/min (90-130); Glucose 125 mg/dL (65-115); HDL Cholesterol 49 mg/dL (60-100); LDL Cholesterol Calculated 171 mg/dL (50-129); LDL HDL Ratio 3.49 RATIO (0.00-3.22); Magnesium 2.2 mg/dL (1.7-2.3); NT Pro B Type Natriuretic Pept 95 pg/mL (0-125); Osmolality Calculated 303 mOsm/kg (285-295); Sodium 144 mmol/L (136-145); Total Bilirubin 0.2 mg/dL (0.15-1.2); Total Protein 6.9 g/dL (6.6-8.7); Triglycerides 120 mg/dL (0-150)
[2023-03-17 11:44] LABS: Anion Gap 13.3 (5-19); Potassium 4.3 mmol/L (3.5-5.1)
== END 2023-03-17 09:59 | disposition home or self-care (01) ==
PROVIDERS: PCP Nurse Practitioner Family; Visit Provider Internal Medicine Cardiovascular Disease
DX: R07.89 Other chest pain (principal); I50.9 Heart failure, unspecified; I25.118 Atherosclerotic heart disease of native coronary artery with other forms of angina pectoris
CPT/HCPCS: 80053; 80061; 83735; 83880

== ENCOUNTER → 2023-03-24 13:01 | Outpatient (BNVA) | payer MEDICARE, SELFPAY | PROVIDERS: PCP Nurse Practitioner Family; Visit Provider Nurse Practitioner Family | DX: I11.0 Hypertensive heart disease with heart failure (principal); I50.9 Heart failure, unspecified; I87.2 Venous insufficiency (chronic) (peripheral); Z87.891 Personal history of nicotine dependence | CPT/HCPCS: 36415; 80048; 99214 ==

== ENCOUNTER → 2023-03-30 13:17 | Outpatient (BNVA) | payer MEDICARE, SELFPAY | PROVIDERS: PCP Nurse Practitioner Family; Visit Provider Anesthesiology Pain Medicine | DX: M47.816 Spondylosis without myelopathy or radiculopathy, lumbar region (principal); M48.062 Spinal stenosis, lumbar region with neurogenic claudication | CPT/HCPCS: 64635; 64636; J1030 ==

== ENCOUNTER 2023-04-01 13:14 | Outpatient (CLI) | payer MEDICARE, SELFPAY ==
--- NOTE | 2023-04-01 13:30 | USCV_ITS ---
Clifford Geronimo Age: 62 Gender: M : 1960 Exam Date: 04/01/2023 13:32 Ordering Phys: Akanksha Graham Technologist: MARIA ANTONIA [place]am [place] [facility] [place] Indication: HISTORY: PROCEDURES: FINDINGS: The veins were found to be easily compressible with spontaneous blood flow. Non pulsatile flow pattern. No significant refluxes were noted either in the deep or in the superficial vein CONCLUSIONS 1. No evidence of DVT in the above-mentioned identifiable veins 2. No significant venous refluxes bilaterally Dr Padmini Rey MD [facility] (Electronically Signed) Final Date: 15 April 2023 17:16 S
== END 2023-04-01 13:15 | disposition home or self-care (01) ==
PROVIDERS: PCP Nurse Practitioner Family; Visit Provider Nurse Practitioner Family
DX: I87.2 Venous insufficiency (chronic) (peripheral) (principal); I50.9 Heart failure, unspecified
CPT/HCPCS: 93970

== ENCOUNTER 2023-04-27 07:56 | Outpatient (CLI) | payer MEDICARE, SELFPAY ==
[2023-04-27 08:39] LABS: Anion Gap 13.4 (5-19); Blood Urea Nitrogen 25 mg/dL (8-23); Calcium 9.6 mg/dL (8.5-10.5); Carbon Dioxide 29 mmol/L (22-29); Chloride 98 mmol/L (98-107); Glomerular Filtration Rate 55.9 mL/min (90-130); Glucose 138 mg/dL (65-115); Magnesium 1.9 mg/dL (1.7-2.3); NT Pro B Type Natriuretic Pept 46 pg/mL (0-125); Osmolality Calculated 291 mOsm/kg (285-295); Potassium 3.4 mmol/L (3.5-5.1); Sodium 137 mmol/L (136-145)
== END 2023-04-27 07:57 | disposition home or self-care (01) ==
PROVIDERS: PCP Nurse Practitioner Family; Visit Provider Internal Medicine Cardiovascular Disease
DX: M48.062 Spinal stenosis, lumbar region with neurogenic claudication (principal); M47.816 Spondylosis without myelopathy or radiculopathy, lumbar region; M51.16 Intervertebral disc disorders with radiculopathy, lumbar region; M17.9 Osteoarthritis of knee, unspecified; I50.9 Heart failure, unspecified; R07.89 Other chest pain
CPT/HCPCS: 36415; 80048; 83735; 83880; 99214

== ENCOUNTER → 2023-08-13 08:52 | Outpatient (BNVA) | payer MEDICARE, SELFPAY | PROVIDERS: PCP Nurse Practitioner Family; Visit Provider Internal Medicine Cardiovascular Disease | DX: I13.0 Hypertensive heart and chronic kidney disease with heart failure and stage 1 through stage 4 chronic kidney disease, or unspecified chronic kidney disease (principal); N18.9 Chronic kidney disease, unspecified; I50.9 Heart failure, unspecified; I25.118 Atherosclerotic heart disease of native coronary artery with other forms of angina pectoris; Z87.891 Personal history of nicotine dependence | CPT/HCPCS: 99214 ==

== ENCOUNTER → 2023-08-31 13:32 | Outpatient (BNVA) | payer MEDICARE, SELFPAY | PROVIDERS: PCP Nurse Practitioner Family; Visit Provider Student in an Organized Health Care Education/Training Program | DX: M17.0 Bilateral primary osteoarthritis of knee (principal) | CPT/HCPCS: 20610; 99214; J3301 ==

== ENCOUNTER 2023-10-04 13:58 | Outpatient (CLI) | payer MEDICARE, SELFPAY ==
--- NOTE | 2023-10-04 14:45 | USCV_ITS ---
Clifford Geronimo Age: 62 Gender: M : 1960 Exam Date: 10/04/2023 14:49 Ordering Phys: Michael Marquez Technologist: Bahman Steele Exam Location: [facility] [place] Indication: dizzy Risk Factors: Previous Vascular Surgery: Right Brachial BP: / Left Brachial BP: / Right Left Velocity (cm/s) Spectral Plaque Velocity (cm/s) Spectral Plaque Syst/Diast Broadening Syst/Diast Broadening 98.10/ 15.40 Prox CCA 108.50/ 20.50 84.90/ 22.10 Mid CCA 100.80/ 23.10 62.80/ 19.80 Hetro Distal CCA 76.00 / 16.20 89.30/ 15.40 Prox ICA 124.30/ 21.80 61.70/ 23.20 Mid ICA 115.00/ 29.50 73.90/ 22.10 Distal ICA 85.40 / 20.20 133.40 ECA 200.40 0.87 ICA/CCA 1.15 Antegrade Vertebral Antegrade 30.90/ 8.50 cm/s 47.40/ 10.10 cm/s [place] Subclavian Bi 90.60 65.25 FINDINGS Comparison:. 02/10/21 No significant elevation of systolic or diastolic velocities. Waveforms are normal. Mixture of calcified and noncalcified plaque in the bifurcations. CONCLUSIONS Bilateral ICA stenosis less than 50%. Dr. Jane Dhillon DO (Electronically Signed) Final Date: 05 October 2023 07:20 S
== END 2023-10-04 13:59 | disposition home or self-care (01) ==
LOC: RAD 13:58
PROVIDERS: PCP Nurse Practitioner Family; Visit Provider Nurse Practitioner Family
DX: R09.89 Other specified symptoms and signs involving the circulatory and respiratory systems (principal); R42 Dizziness and giddiness; I65.23 Occlusion and stenosis of bilateral carotid arteries
CPT/HCPCS: 93880

== ENCOUNTER → 2023-12-14 09:01 | Outpatient (BNVA) | payer MEDICARE, SELFPAY | PROVIDERS: PCP Nurse Practitioner Family; Visit Provider Student in an Organized Health Care Education/Training Program | DX: M17.0 Bilateral primary osteoarthritis of knee (principal) | CPT/HCPCS: 20610; 99213; J3301 ==

== ENCOUNTER → 2023-12-16 14:00 | Outpatient (BNVA) | payer MEDICARE, SELFPAY | PROVIDERS: PCP Nurse Practitioner Family; Referring Provider Nurse Practitioner Family; Visit Provider Internal Medicine | DX: I13.0 Hypertensive heart and chronic kidney disease with heart failure and stage 1 through stage 4 chronic kidney disease, or unspecified chronic kidney disease (principal); N18.9 Chronic kidney disease, unspecified; I50.9 Heart failure, unspecified; Z87.891 Personal history of nicotine dependence; I25.118 Atherosclerotic heart disease of native coronary artery with other forms of angina pectoris; I87.2 Venous insufficiency (chronic) (peripheral) | CPT/HCPCS: 99214 ==

== ENCOUNTER 2023-12-24 09:14 | Outpatient (CLI) | payer MEDICARE, SELFPAY ==
--- NOTE | 2023-12-24 | ECG_ITS ---
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 Interpretive Statements NAME OF STUDY: LEXISCAN SESTAMIBI STRESS TEST INDICATION: [Chest Pain; Shortness of Breath, ] Procedure: At the baseline, the blood pressure was 123/92 mmHg with a heart rate of 62 bpm. The electrocardiogram showed normal sinus rhythm, normal axis with normal ST and T's. The Lexiscan was infused over a period of 20 seconds. A total of 0.4 mg of Lexiscan was infused. The stress phase was continued for a total of 5 minutes. Heart rate was at the end of stress phase was 87 bpm and a blood pressure of 116/84 mmHg. The EKG at the peak infusion revealed normal sinus rhythm with no significant ST-T wave changes. Sestamibi was injected 20 seconds after the Lexiscan infusion. Blood pressure at the end of recovery phase was 115/84 mmHg with a heart rate of 77 bpm. Conclusion: 1. Normal EKG response to Lexiscan infusion 2. No Lexiscan induced chest pain or cardiac arrhythmia. 3. Normal blood pressure and heart rate response. 4. Sestamibi/sestamibi perfusion scan pending; see separate report. Electronically Signed On 12-30-2023 11:07:58 CDT by Basim Cruz M.D. [id number]
[2023-12-24 10:29] VITALS: BMI 46.0
--- NOTE | 2023-12-24 10:29 | NMCV_ITS ---
NM eugene perf SPECT r/s* [id number] Clifford Geronimo Age: 62 Gender: M : 1960 Exam Date: 12/24/2023 10:29 Ordering Phys: Basim Cruz M.D ([email or web address]) Technologist: GREG Patterson Exam Location: [facility] Indications: CHEST PAIN STRESS TEST [facility] IMAGE PROTOCOL Rest/Stress 1 Lexiscan Day Radiopharmaceutical Dose (mCi) Administration Site Administered by Rest: Tc-99m 10.8 IV GREG Botello Sestamibi Stress:Tc-99m 32.4 IV GREG Botello Sestamibi Rest: 24-Dec-2023 60 Discovery 630 Stress: 24-Dec-2023 30 Discovery 630 0.4mg Lexiscan. Images obtained in supine and prone position. SPECT RESULTS Technical Quality: Excellent Raw Data Analysis: Normal Image Corrections: No attenuation or motion correction applied Summed Stress Score: 1 Summed Rest Score: 0 Summed Difference Score: 1 PERFUSION FINDINGS There is a very small sized, reversible perfusion defect noted in the inferolateral wall. This is consistent with very small area of ischemia in the left circumflex artery territory. FUNCTIONAL RESULTS (calculated via Gated SPECT) Stress Image LV EF (%): 65 Stress EDV (mL):110 TID: 0.89 Stress ESV (mL):38 FUNCTIONAL FINDINGS: There is normal left ventricular systolic function. IMPRESSIONS 1. Very small sized area of ischemia noted in the left circumflex artery territory. 2. LV systolic function is normal Basim Cruz MD (Electronically Signed) Final Date: 28 December 2023 10:04 S
[2023-12-24] MEDS: regadenoson 0.4 Mg/5 ml Syringe 0.400000000000000022 MG IVP (11:06)
[2023-12-24 11:44] VITALS: BP 115/84; PULSE 82
== END 2023-12-24 09:15 | disposition home or self-care (01) ==
PROVIDERS: PCP Nurse Practitioner Family; Visit Provider Internal Medicine
DX: R07.9 Chest pain, unspecified (principal)
CPT/HCPCS: 36415; 78452; 93017; 96374; A9500; J2785

== ENCOUNTER → 2024-01-31 14:47 | Outpatient (BNVA) | payer MEDICARE, SELFPAY | PROVIDERS: PCP Nurse Practitioner Family; Visit Provider Internal Medicine | DX: I13.0 Hypertensive heart and chronic kidney disease with heart failure and stage 1 through stage 4 chronic kidney disease, or unspecified chronic kidney disease (principal); N18.9 Chronic kidney disease, unspecified; I50.9 Heart failure, unspecified; I25.118 Atherosclerotic heart disease of native coronary artery with other forms of angina pectoris; I87.2 Venous insufficiency (chronic) (peripheral); Z87.891 Personal history of nicotine dependence | CPT/HCPCS: 99214 ==

== ENCOUNTER 2024-02-24 20:00 | Outpatient (CLI) | payer MEDICARE, SELFPAY | END 2024-02-24 20:01 | disposition home or self-care (01) | LOC: SLEEP 02-25 05:47 | PROVIDERS: PCP Nurse Practitioner Family; Visit Provider Nurse Practitioner Family | DX: G47.33 Obstructive sleep apnea (adult) (pediatric) (principal) | CPT/HCPCS: 95811 ==

== ENCOUNTER → 2024-03-21 08:24 | Outpatient (BNVA) | payer MEDICARE, SELFPAY | PROVIDERS: PCP Nurse Practitioner Family; Visit Provider Nurse Practitioner Family | DX: I25.118 Atherosclerotic heart disease of native coronary artery with other forms of angina pectoris (principal) | CPT/HCPCS: 80053; 80061; 85025 ==

== ENCOUNTER → 2024-05-10 13:35 | Outpatient (BNVA) | payer MEDICARE, SELFPAY | PROVIDERS: PCP Nurse Practitioner Family; Visit Provider Physician Assistant | DX: M17.11 Unilateral primary osteoarthritis, right knee (principal); M17.12 Unilateral primary osteoarthritis, left knee | CPT/HCPCS: 20610; 99213; J3301 ==

== ENCOUNTER → 2024-07-03 08:56 | Outpatient (BNVA) | payer MEDICARE, SELFPAY | PROVIDERS: PCP Nurse Practitioner Family; Visit Provider Internal Medicine | DX: I11.0 Hypertensive heart disease with heart failure (principal); I50.9 Heart failure, unspecified; I77.9 Disorder of arteries and arterioles, unspecified; I25.118 Atherosclerotic heart disease of native coronary artery with other forms of angina pectoris; I87.2 Venous insufficiency (chronic) (peripheral) | CPT/HCPCS: 36415; 80048; 83880; 99214 ==

== ENCOUNTER 2024-07-07 14:03 | Emergency (ER) | payer MEDICARE, SELFPAY ==
[2024-07-07] VITALS (7 sets, daily range): BP systolic 116–150; BP diastolic 86–94; PULSE 78–94; RESP 20; TEMP 36.7; O2SAT 93–95; BMI 46.5
--- NOTE | 2024-07-07 14:27 | XR_ITS ---
WS: [id number] Portable AP semiupright chest, 07/07/2024 Clinical Data: cp Comparison: Portable chest, 09/25/2020 Findings: No nodules, masses or effusions are seen. The heart is normal. The pulmonary vascularity is not increased. No pneumonia or pneumothorax is seen. The right diaphragm is slightly elevated, uncha nged. XR/XR chest 1V portable [id number] Impression: Negative chest.
--- NOTE | 2024-07-07 14:27 | ECG_ITS ---
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
--- NOTE | 2024-07-07 14:28 | ED_ITS ---
HPI - Chest Pain 2 General: Chief Complaint: Chest Pain Stated Complaint: cp Time Seen by Provider: 07/07/24 14:13 Source: patient and family Mode of arrival: EMS Limitations: no limitations History of Present Illness: This patient was transported to the [facility] part by EMS from his home. Both he and his family are concerned because he does not feel well over the last 24 hours. He has not history of known coronary disease has had chronic recurrent chest pain and stable angina. He is recently seen by cardiology and had an additional diuretic metolazone added to his regimen which he has taken for several days. He has not taken it today and yesterday evening due to the 's concern that it may be contributing to his current symptoms. She states he is lost approximately 17 pounds of weight since starting his diuretic since last week. He feels weak and unsteady. He denies any focal weakness just generalized global weakness. As noted he has a history of coronary disease and currently takes clopidogrel as well as his other medications. His last stent was placed several years ago. His expressed additional concern because she thought his blood pressures have been a bit higher at times over the past 24 hours. She produced blood pressure that was noted to be 169/102. He was asymptomatic at the time of this blood pressure. She states his blood pressures are normally in the 120s over 70s or thereabouts. She states she has been taking his medications as prescribed Pertinent past history: coronary artery disease Associated symptoms: Deny abdominal pain, dyspnea, fever(s), nausea or vomiting Related Data Home Medications Medication Instructions Recorded Confirmed acetaminophen 500 mg tablet 500 mg PO Q6H PRN 06/11/22 07/03/24 (Tylenol Extra Strength) cholecalciferol (vitamin D3) 25 25 mcg PO DAILY 03/10/23 07/03/24 mcg (1,000 unit) capsule furosemide 40 mg tablet 40 mg PO BID edema 07/03/24 07/03/24 furosemide 80 mg tablet (Lasix) 80 mg PO BID 07/03/24 07/03/24 Previous Rx's Medication Instructions Recorded atorvastatin 80 mg tablet 80 mg PO BEDTIME@1000 #90 tabs 03/22/23 metolazone 2.5 mg tablet 2.5 mg PO DIRECTED #14 tabs 04/13/23 gabapentin 300 mg capsule 300 mg PO TID pain #90 caps 04/27/23 nitroglycerin 0.4 mg sublingual 0.4 mg sublingual Q5M PRN chest 05/28/23 tablet pains #25 tabs amlodipine 5 mg tablet 7.5 mg (1.5 x 5 mg) PO DAILY #135 10/07/23 tabs cyclobenzaprine 10 mg tablet 10 mg PO Q12H PRN muscle spasm #60 02/11/24 tabs fenofibrate nanocrystallized 145 145 mg PO DAILY@0800 #90 tabs 02/17/24 mg tablet isosorbide mononitrate 30 mg 30 mg PO DAILY@0800 #90 tabs 02/17/24 tablet,extended release 24 hr ranolazine 1,000 mg 1,000 mg PO Q12H #180 tabs 04/04/24 tablet,extended release,12 hr needs new bipap machine #1 ea 04/27/24 potassium chloride 20 mEq See Rx Instructions .Route 04/27/24 tablet,extended release(part/cryst) .COMPLEX #60 tabs clopidogrel 75 mg tablet (Plavix) 75 mg PO DAILY #90 tabs 05/01/24 alprazolam 1 mg tablet (Xanax) 1 mg PO Q12H #60 tabs 05/03/24 metoprolol tartrate 25 mg tablet See Rx Instructions .Route 05/22/24 .COMPLEX #180 tabs metolazone 2.5 mg tablet 2.5 mg PO DAILY #7 tabs 07/03/24 Allergies Allergy/AdvReac Type Severity Reaction Status Date / Time NSAIDS (Non-Steroidal Allergy Severe ALGY-Anaphy Verified 07/03/24 09:08 Anti-Inflamma laxis aspirin Allergy ALGY-Anaphy Verified 07/03/24 09:08 laxis azithromycin Allergy ALGY-Anaphy Verified 07/03/24 09:08 laxis Review of Systems 2 Const: Reports: change in weight; Denies: fever(s), chills or body aches ENMT: Denies: throat pain, odynophagia, nasal discharge or nasal congestion Resp: Denies: dyspnea, productive cough or non-productive cough GI: Denies: abdominal pain, nausea, vomiting or diarrhea : Denies: flank pain, difficulty urinating, dysuria or urinary frequency Musc: Denies: neck pain, back pain, extremity pain or extremity swelling Skin/Breast: Denies: rash, pruritus or photosensitivity Neuro: Denies: headache(s), numbness in extremities or weakness in extremities Psych: Reports: anxiety PFSH ED 2 PFSH: Medical History CHF (congestive heart failure), NYHA class III Chronic venous insufficiency of lower extremity Chronic kidney disease (CKD) Aspirin allergy CHF (congestive heart failure), NYHA class I LVEF 40% grade 2 diastolic dysfunction 03/18/2017 Dyslipidemia Essential hypertension Obesity Tobacco abuse stopped smoking in 2017 STEMI (ST elevation myocardial infarction) CAD (coronary artery disease) Family History Mother Anesthesia complication CAD (coronary artery disease) Diabetes Hyperlipidemia Hypertension Father Anesthesia complication CAD (coronary artery disease) Chronic kidney disease (CKD) Denies family history of Clotting disorder Dementia Psychiatric illness Suicide Bleeding disorder Family history of premature coronary artery disease Lung disease Cancer Stroke Social History Smoking and tobacco/nicotine status: former use of tobacco/nicotine Second hand smoke exposure: Yes Alcohol intake: current Alcohol intake frequency: holidays/special occasions only Alcohol type: hard liquor Substance/Drug Use: never Physical Exam 2 Narrative: EXAM NARRATIVE: Anxious in appearance but able to answer questions in a goal-directed fashion and he makes good eye contact. Const: COMMON NORMALS: patient oriented x3 and alert GENERAL APPEARANCE: c ooperative NUTRITIONAL APPEARANCE: obese HENMT: COMMON NORMALS: normocephalic, Normal nasal mucous membranes and turbinates present, moist oral mucous membranes and oropharynx normal HEAD & SCALP: normocephalic NOSE: Normal nasal mucous membranes and turbinates present Eye: COMMON NORMALS: Equal, round and reactive pupils present, EOMs intact bilaterally and conjunctivae normal CONJUNCTIVA: Yes conjunctivae normal P UPIL: Yes Equal, round and reactive pupils present Neck/C-Spine: COMMON NORMALS: full ROM, no lymphadenopathy, no JVD and No carotid bruits Chest: COMMONS NORMALS: normal inspection of the chest and normal palpation of entire chest wall Resp: COMMON NORMALS: normal respiratory effort, No retractions, No use of accessory muscles and clear to auscultation bilaterally AUSCULTATION: clear to auscultation bilaterally Cardio: COMMON NORMALS: no JVD, regular rate, regular rhythm, No murmurs present (Cardio) and Peripheral pulses 2+ throughout RATE: regular rate R HYTHM: regular rhythm PERIPHERAL PULSES: Peripheral pulses 2+ throughout GI: COMMON NORMALS: Normal to inspection, nondistended, normoactive bowel sounds present and non-tender INSPECTION: Yes central obesity : COMMON NORMALS: Yes no CVA tenderness BLADDER/KIDNEY EXAM: Yes no CVA tenderness Back/Pelvis: COMMON NORMALS: no CVA tenderness, thoracic and lumbar spine normal to inspection and no thoracic nor lumbar tenderness Extremity: COMMON NORMALS: full ROM, capillary refill normal, no calf tenderness and no pedal edema NARRATIVE EXTREMITY EXAM: He has no edema in fact he has very loose skin over the subcutaneous tissues on his lower extremities without any tenseness whatsoever Neuro: COMMON NORMALS: patient oriented x3, moves all extremities, no focal motor deficits and no sensory deficits noted SENSORIUM/ORIENTATION: Yes alert CRANIAL NERVES: Yes CN normal except as noted Psych: COMMON NORMALS: mental status grossly normal Skin: COMMON NORMALS: turgor normal NARRATIVE SKIN EXAM: He has brought in this colorization and hypertrophy of the skin of his lower extremities distal from mid calf. GENERAL SKIN EXAM: turgor normal Course 2 Reevaluation(s): Reevaluation #1: The patient continues to remain stable. No new or focal findings on repeat examination. Vital signs remained stable. Initial troponin was slightly over the URL without any acute EKG changes Time: 16:20 Reevaluation #2: Again no new findings on his clinical examination second opponent is slightly over the URL but has fallen from the first troponin again without any concomitant EKG changes of concern. Reviewed his current findings in detail with the patient and his accompanying family especially his spouse. We also discussed that likely much of his symptomatology is due to his rapid weight loss due to his additional diuretic. His slightly low potassium was corrected in the emergency department as well. We reviewed additional measures such as compression sleeves to help reduce dependent edema and likelihood of skin ulcers 8 ulcerations. We also recommended checking weight to ensure that he does not have wide fluctuations related to diuretic use. She feels that she does not want him to take the additional diuretic was given to him on the short-term and I related that certainly not unreasonable as long as a follow his weight and follow-up with cardiology versus any additional ongoing symptoms and they are welcome to return to the emergency department anytime. She is very appreciative of care. Time: 18:00 Vital Signs: Vital signs: Vital Signs Temperature 98.0 F 07/07/24 14:06 Pulse Rate 81 07/07/24 18:17 Respiratory Rate 20 H 07/07/24 14:06 Blood Pressure 150/94 07/07/24 18:17 Pulse Oximetry 94 07/07/24 18:17 Oxygen Delivery Me thod Room Air 07/07/24 14:06 MDM - Chest Pain Medical Decision Making This patient with a known history of coronary disease presents to the emergency department as noted in the HPI. Differential at this time includes ACS, electrolyte abnormalities, nonsustained arrhythmia, CHF. Workup will be initiated to evaluate this differential and also reevaluate the patient for additional information that might be additional possible diagnosis. The patient received a evaluation emergency department included monitoring, serial troponins with serial EKGs. As well as other associated laboratory imaging. Throughout the emergency department stay he remained controlled and asymptomatic. Initial troponin was slightly elevated therefore a second troponin was obtained to ensure no ongoing risk of ACS at this time. Chest x- ray was reassuring. He did have a slightly low potassium and this was corrected as well. The patient continued to remain stable without any clinical or ancillary studies that suggested acute coronary syndrome or other acute process at the time of this visit therefore he was discharged in stable condition with outpatient follow-up and return precautions Medical Records I reviewed the patient's medical records. Lab Data I reviewed the patient's lab results. 07/07/24 14:50 07/07/24 14:50 Radiology Impressions Chest X-Ray 07/07/24 14:27 Impression: Negative chest. Laboratory Results WBC 12.23 10^3/uL (3.29-11.43) H 07/07/24 14:50 RBC 6.10 10^6/uL (3.85-5.65) H 07/07/24 14:50 Hgb 19.00 g/dL (11.27-16.99) H 07/07/24 14:50 Hct 54.1 % (37-53) H 07/07/24 14:50 MCV 88.7 fl (82-101) 07/07/24 14:50 MCH 31.1 pg (27-33) 07/07/24 14:50 MCHC 35.1 g/dL (30-55) 07/07/24 14:50 RDW 14.6 % (12.1-15.1) 07/07/24 14:50 Plt Count 240 10^3/cmm (157-399) 07/07/24 14:50 MPV 9.3 fL (7.4-10.4) 07/07/24 14:50 Neut % (Auto) 69.7 % 07/07/24 14:50 Lymph % (Auto) 19.8 % 07/07/24 14:50 Wilkin % (Auto) 8.4 % 07/07/24 14:50 Eos % (Auto) 0.3 % 07/07/24 14:50 Baso % (Auto) 0.5 % 07/07/24 14:50 Neut # (Auto) 8.52 10^3/uL (1.8-7.7) H 07/07/24 14:50 Lymph # (Auto) 2.4 10^3/uL (0.8-4.8) 07/07/24 14:50 Wilkin # (Auto) 1.0 10^3/uL (0.2-0.9) H 07/07/24 14:50 Eos # (Auto) 0.0 10^3/uL (0.0-0.8) 07/07/24 14:50 Baso # (Auto) 0.1 10^3/uL (0.0-0.1) 07/07/24 14:50 Nucleated RBC % (auto) 0 % 07/07/24 14:50 Nucleated RBCs # 0.0 /100WBC 07/07/24 14:50 Sodium 132 mmol/L (136-145) L 07/07/24 14:50 Potassium 3.1 mmol/L (3.5-5.1) L 07/07/24 14:50 Chloride 86 mmol/L (98-107) L 07/07/24 14:50 Carbon Dioxide 32 mmol/L (22-29) H 07/07/24 14:50 Anion Gap 17.1 (5-19) 07/07/24 14:50 BUN 32 mg/dL (8-23) H 07/07/24 14:50 Creatinine 1.4 mg/dL (0.7-1.2) H 07/07/24 14:50 GFR Calculation 51.2 mL/min (90-130) L 07/07/24 14:50 Glucose 124 mg/dL (65-115) H 07/07/24 14:50 Calculated Osmolality 282 mOsm/kg (285-295) L 07/07/24 14:50 Calcium 10.6 mg/dL (8.5-10.5) H 07/07/24 14:50 Magnesium 2.1 mg/dL (1.7-2.3) 07/07/24 14:50 Troponin T Baseline 17 ng/L (0-15) H 07/07/24 14:50 Troponin T 120 Minute 15.99 ng/L (0-15) H 07/07/24 16:48 Delta Troponin T -1.01 ABS# (0-10) L 07/07/24 16:48 NT-Pro-B Natriuret Pep 81 pg/mL (0-125) 07/07/24 14:50 All radiology interpretation(s) finalized by discharge EKG Data EKG 1: I personally reviewed and interpreted this EKG as follows: Interpretation: Contemporaneous review of resting EKG reveals a ventricular rate of 90 bpm. He has normal [place] interval, QRS duration, corrected QT interval. Normal axis. He has no acute ST-T wave changes at this time. Discharge Plan Discharge Patient Disposition: Home Clinical Impression: Chronic stable angina, Hypokalemia Condition: Stable Prescriptions: No Action acetaminophen [Tylenol Extra Strength] 500 mg tablet 500 mg PO Q6H PRN bupivacaine (PF) 0.25 % (2.5 mg/mL) solution 2 ml Infiltration ONCE Qty: 1 0RF bupivacaine (PF) 0.25 % (2.5 mg/mL) solution 1 ml Infiltration ONCE Qty: 1 0RF cholecalciferol (vitamin D3) 25 mcg (1,000 unit) capsule 25 mcg PO DAILY furosemide 40 mg tablet 40 mg PO BID Rx Instructions: Take for on e week then switches to 80mg furosemide [Lasix] 80 mg tablet 80 mg PO BID Rx Instructions: Take for 1 week then switch to 40mg. alternate weeks between to dosages. gabapentin 300 mg capsule 300 mg PO TID Qty: 90 2RF atorvastatin 80 mg tablet 80 mg PO BEDTIME@1000 Qty: 90 3RF metolazone 2.5 mg tablet 2.5 mg PO DIRECTED Qty: 14 0RF Rx Instructions: take 1 tablet every other day x2 weeks, take extra K+ with each nitroglycerin 0.4 mg tablet, sublingual 0.4 mg sublingual Q5M PRN (Reason: chest pains) Qty: 25 3RF amlodipine 5 mg tablet 7.5 mg PO DAILY Qty: 135 3RF cyclobenzaprine 10 mg tablet 10 mg PO Q12H PRN (Reason: muscle spasm) Qty: 60 6RF Rx Instructions: take at 0800 and 2000 prn isosorbide mononitrate 30 mg tablet extended release 24 hr 30 mg PO DAILY@0800 Qty: 90 1RF fenofibrate nanocrystallized 145 mg tablet 145 mg PO DAILY@0800 Qty: 90 1RF ranolazine 1,000 mg tablet extended release 12 hr 1,000 mg PO Q12H Qty: 180 3RF Rx Instructions: take at 0800 and 2000 potassium chloride 20 mEq tablet,ER particles/crystals See Rx Instructions .ROUTE .COMPLEX Qty: 60 2RF Dose Instruction: TAKE ONE TABLET BY MOUTH TWICE DAILY Rx Instructions: TAKE ONE TABLET BY MOUTH TWICE DAILY (DME) needs new bipap machine See Rx Instructions .Route .MEDSUPPLY Qty: 1 0RF Rx Instructions: titration, 22/18cm, see recent cpap study clopidogrel [Plavix] 75 mg tablet 75 mg PO DAILY Qty: 90 2RF alprazolam [Xanax] 1 mg tablet 1 mg PO Q12H Qty: 60 5RF Rx Instructions: take at 0800 and 2000 metoprolol tartrate 25 mg tablet See Rx Instructions .ROUTE .COMPLEX Qty: 180 3RF Dose Instruction: TAKE ONE TABLET BY MOUTH TWICE DAILY Rx Instructions: TAKE ONE TABLET BY MOUTH TWICE DAILY metolazone 2.5 mg tablet 2.5 mg PO DAILY Qty: 7 0RF Discharge Orders: Discharge ED (Routine); Ordered 07/07/24 Ordered By: Ihsan Greene Referrals: Anthony Marquez, S[employer]ER [Primary Care Provider] - Discharge Diet: Usual diet and Low Salt Discharge Activity: Increase activity as tolerated Patient Instructions: Opioid Safety, Pain Management Activity Restrictions/Additional Instructions: As we discussed while you are in the emergency department your potassium was low likely related to increased diuretic use. We have replaced your potassium while you are in the emergency department. We also recommend buying ossz-oik-pazxrzu magnesium sulfate 400 mg and taking 1 of those daily in addition to all your other usual medications. Do not restart the new diuretic and continue with your previous diuretics. Monitor your weight on a daily basis to determine if you need additional fluid removed by taking an extra Lasix on his as needed. Purchase sleeves to help compress your lower extremities so that reduces your swelling. If you develop any new or worsening symptoms return to the emergency department for reevaluation. 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
[2024-07-07 14:59] LABS: Basophils # 0.1 10^3/uL (0.0-0.1); Basophils % 0.5 %; Eosinophils % 0.3 %; Hematocrit 54.1 % (37-53); Lymphocytes # 2.4 10^3/uL (0.8-4.8); Lymphocytes % 19.8 %; Mean Corpuscular HGB Conc 35.1 g/dL (30-55); Mean Corpuscular Hemoglobin 31.1 pg (27-33); Mean Corpuscular Volume 88.7 fl (82-101); Mean Platelet Volume 9.3 fL (7.4-10.4); Monocytes % 8.4 %; Neutrophils # 8.52 10^3/uL (1.8-7.7); Neutrophils % 69.7 %; Nucleated Red Blood Cells % 0 %; Platelet Count 240 10^3/cmm (157-399); Red Cell Distribution Width 14.6 % (12.1-15.1); White Blood Count 12.23 10^3/uL (3.29-11.43)
[2024-07-07 15:15] LABS: Troponin(5th) Baseline 17 ng/L (0-15)
[2024-07-07 15:29] LABS: Anion Gap 17.1 (5-19); Blood Urea Nitrogen 32 mg/dL (8-23); Calcium 10.6 mg/dL (8.5-10.5); Carbon Dioxide 32 mmol/L (22-29); Chloride 86 mmol/L (98-107); Glomerular Filtration Rate 51.2 mL/min (90-130); Glucose 124 mg/dL (65-115); Magnesium 2.1 mg/dL (1.7-2.3); NT Pro B Type Natriuretic Pept 81 pg/mL (0-125); Osmolality Calculated 282 mOsm/kg (285-295); Potassium 3.1 mmol/L (3.5-5.1); Sodium 132 mmol/L (136-145)
[2024-07-07 15:30] LABS: Creatinine Clr Calc Pharmacy 66.9949
[2024-07-07] MEDS: potassium bicarb 25 mEq Tablet 50 MEQ PO (15:48)
--- NOTE | 2024-07-07 16:27 | ECG_ITS ---
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
[2024-07-07 17:16] LABS: Troponin 5 2HR 15.99 ng/L (0-15)
[2024-07-07 17:27] LABS: Troponin 5 2HR Delta -1.01 ABS# (0-10)
== END 2024-07-07 18:24 | disposition home or self-care (01) ==
PROVIDERS: Emergency Provider Emergency Medicine; PCP Nurse Practitioner Family
DX: I25.118 Atherosclerotic heart disease of native coronary artery with other forms of angina pectoris (principal); E87.6 Hypokalemia; Z79.02 Long term (current) use of antithrombotics/antiplatelets; Z87.891 Personal history of nicotine dependence; I13.0 Hypertensive heart and chronic kidney disease with heart failure and stage 1 through stage 4 chronic kidney disease, or unspecified chronic kidney disease; N18.9 Chronic kidney disease, unspecified; I50.9 Heart failure, unspecified; E78.5 Hyperlipidemia, unspecified; I25.2 Old myocardial infarction
CPT/HCPCS: 71045; 80048; 83735; 83880; 84484; 85025; 93005; 99285

== ENCOUNTER → 2024-07-19 10:32 | Outpatient (BNVA) | payer MEDICARE, SELFPAY | PROVIDERS: PCP Nurse Practitioner Family; Visit Provider Nurse Practitioner Family | DX: I50.32 Chronic diastolic (congestive) heart failure (principal) | CPT/HCPCS: 80053; 83735; 83880 ==

== ENCOUNTER 2024-08-03 11:59 | Outpatient (CLI) | payer MEDICARE, SELFPAY ==
--- NOTE | 2024-08-03 12:02 | USCV_ITS ---
Clifford Geronimo Age: 63 Gender: M : 1960 Exam Date: 08/03/2024 12:10 Ordering Phys: Basim Cruz M.D ([email or web address]) Technologist: Exam Location: [facility] [place] Indication: HISTORY: PROCEDURES: FINDINGS: All deep veins demonstrated compressibility without evidence of intraluminal thrombus or increased echogenicity. Spectral analysis of Doppler signals demonstrates normal response to compression maneuvers indicating patency without obstruction. Reflux determinations were made with the patient in the dependent position, the weight being on the contralateral leg. No notable reflux was seen at this time. The veins were found to be easily compressible with spontaneous blood flow. Non pulsatile flow pattern. CONCLUSIONS 1. No evidence of DVT in the above-mentioned identifiable veins. 2. No significant venous reflux bilaterally either in the superficial or in the deep veins Dr Padmini Rey MD [facility] (Electronically Signed) Final Date: 07 August 2024 08:40 S
--- NOTE | 2024-08-03 14:15 | USCV_ITS ---
Clifford Geronimo Age: 63 Gender: M : 1960 Exam Date: 08/03/2024 12:46 Ordering Phys: Basim Cruz M.D ([email or web address]) Technologist: Exam Location: [facility] [place] Indication: hx of Cad BP: 130 / 70 HR: 89 Rhythm: Sinus Technical Quality: Adequate MEASUREMENTS (Male / Female) Normal Values 2D ECHO LV Diastolic Diameter PLAX 4.9 cm 4.2 - 5.9 / 3.9 - 5.3 cm IVS Diastolic Thickness 1.3 cm 0.6 - 1.0 / 0.6 - 0.9 cm IVS Systolic Thickness 1.3 cm LVPW Diastolic Thickness 1.2 cm 0.6 - 1.0 / 0.6 - 0.9 cm LVPW Systolic Thickness 1.8 cm LVOT Diameter 2.3 cm LV Ejection Fraction 2D Teich 56.6 % LV Ejection Fraction MOD 4C 50.4 % LV Ejection Fraction MOD 2C 58.5 % LV Ejection Fraction 2C AL 58.8 % LA Diameter 2.8 cm RA Systolic Volume 4C AL 38.2 ml RA Systolic Volume 4C MOD 36.8 ml Aorta at Sinotubular Diameter 3.3 cm M-MODE LA Ao Ratio MM 1.0 AV Cusp Separation MM 2.0 cm DOPPLER AV Peak Velocity 127.0 cm/s LVOT Peak Velocity 95.0 cm/s AV Area Cont Eq vti 3.7 cm squared AV Area Cont Eq pk 3.2 cm squared MV Peak Velocity 94.0 cm/s MV Area PHT 4.3 cm squared Mitral E to A Ratio 0.9 TV Peak Velocity 156.0 cm/s TR Peak Velocity 162.0 cm/s TR Peak Gradient 10.5 mmHg TV Peak E Velocity 77.0 cm/s Right Atrial Pressure 3.0 mmHg Pulmonary Artery Systolic Pressu 13.5 mmHg PV Peak Velocity 107.0 cm/s FINDINGS Left Ventricle Normal left ventricular size, systolic function and wall thickness, with no regional wall motion abnormalities. Left ventricular ejection fraction is estimated at 60 %. Grade I/IV diastolic dysfunction (abnormal relaxation filling pattern), normal to mildly elevated filling pressures. Right Ventricle The right ventricle is normal in size and function. Right Atrium The right atrium is normal in size. Left Atrium The left atrium is normal in size. Mitral Valve Structurally normal mitral valve without significant stenosis or prolapse. There is no mitral regurgitation. Aortic Valve Structurally normal aortic valve without significant sclerosis or stenosis. There is no aortic regurgitation. Tricuspid Valve Structurally normal tricuspid valve without significant stenosis or regurgitation. Pulmonary artery systolic pressure is normal. Pulmonic Valve Structurally normal pulmonic valve without significant stenosis. There is no pulmonic regurgitation. Pericardium Normal pericardium without effusion. Aorta Normal ascending aorta dimension. IVC The inferior vena cava appears normal. CONCLUSIONS Normal left ventricular size, systolic function and wall thickness, with no regional wall motion abnormalities. Left ventricular ejection fraction is estimated at 60 %. Grade I/IV diastolic dysfunction (abnormal relaxation filling pattern), normal to mildly elevated filling pressures. There is no pericardial effusion. No significant valve abnormalities. Pulmonary artery systolic pressure is within normal limits. Right atrial pressure is around 5 mm of mercury. Elba Townsend MD (Electronically Signed) Final Date: 05 August 2024 13:45 S
== END 2024-08-03 12:00 | disposition home or self-care (01) ==
LOC: RAD 12:00
PROVIDERS: PCP Nurse Practitioner Family; Visit Provider Internal Medicine
DX: I50.30 Unspecified diastolic (congestive) heart failure (principal); R07.9 Chest pain, unspecified; R06.02 Shortness of breath; I87.2 Venous insufficiency (chronic) (peripheral)
CPT/HCPCS: 93306; 93970

== ENCOUNTER → 2024-08-15 11:55 | Outpatient (BNVA) | payer MEDICARE, SELFPAY | PROVIDERS: PCP Nurse Practitioner Family; Visit Provider Physician Assistant | DX: M17.0 Bilateral primary osteoarthritis of knee (principal) | CPT/HCPCS: 20610; 99213; J3301 ==

== ENCOUNTER → 2024-10-02 09:40 | Outpatient (BNVA) | payer MEDICARE, SELFPAY | PROVIDERS: PCP Nurse Practitioner Family; Visit Provider Nurse Practitioner Family | DX: I25.118 Atherosclerotic heart disease of native coronary artery with other forms of angina pectoris (principal); I13.0 Hypertensive heart and chronic kidney disease with heart failure and stage 1 through stage 4 chronic kidney disease, or unspecified chronic kidney disease; N18.9 Chronic kidney disease, unspecified; I50.32 Chronic diastolic (congestive) heart failure; Z87.891 Personal history of nicotine dependence | CPT/HCPCS: 99214 ==

== ENCOUNTER 2024-10-25 11:31 | Emergency (ER) | payer MEDICARE, SELFPAY ==
[2024-10-25] VITALS (23 sets, daily range): BP systolic 128–157; BP diastolic 78–102; PULSE 71–93; RESP 15–39; TEMP 36.6; O2SAT 93–99; BMI 48.7
--- NOTE | 2024-10-25 11:55 | ECG_ITS ---
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 Measurements Intervals [place] Rate: 82 P: 56 SD: 159 QRS: 25 QRSD: 73 T: 59 QT: 334 QTc: 392 Interpretive Statements SINUS RHYTHM LOW QRS VOLTAGE IN PRECORDIAL LEADS [QRS DEFLECTION < 1.0 mV IN CHEST LEADS] Compared to ECG 07/07/2024 16:33:18 No significant changes Electronically Signed On 10-25-2024 17:35:46 DONOR SERVICES SPECIALIST by Padmini Rey M.D. [id number]
--- NOTE | 2024-10-25 13:28 | CT_ITS ---
WS: [id number] CT HEAD NONCONTRAST HISTORY: severe headaches worse in am, nausea TECHNIQUE: Contiguous axial imaging performed through the brain. Bone and soft tissue windows. Sagitt al and coronal reformats reviewed. All CT scans at [facility] use at least one of these dose optimization techniques: automated exposure control; mA and/or kV adjustment per patient size (includ es targeted exams where dose is matched to clinical indication); or iterative reconstruction. DLP: 1029.38 mGy.cm COMPARISON: None available. No acute intracranial hemorrhage, midline shift or mass effect. No atrophy or prior infarcts or herniation. Ventricles: Normal size with no hydrocephalus. Paranasal sinuses: As visualized are clear. Mastoid air cells: Well pneumatized. Calvarium and scalp: Skull is intact with no soft tissue edema or swelling. CT/CT head wo con* [id number] IMPRESSION: Negative head CT.
[2024-10-25 13:59] LABS: Basophils # 0.1 10^3/uL (0.0-0.1); Basophils % 0.5 %; Eosinophils % 0.4 %; Hematocrit 51.4 % (37-53); Lymphocytes # 2.6 10^3/uL (0.8-4.8); Lymphocytes % 24.6 %; Mean Corpuscular HGB Conc 32.5 g/dL (30-55); Mean Corpuscular Hemoglobin 30.5 pg (27-33); Mean Corpuscular Volume 93.8 fl (82-101); Mean Platelet Volume 9.3 fL (7.4-10.4); Monocytes # 0.7 10^3/uL (0.2-0.9); Monocytes % 6.8 %; Neutrophils # 6.91 10^3/uL (1.8-7.7); Neutrophils % 66.6 %; Nucleated Red Blood Cells % 0 %; Platelet Count 238 10^3/cmm (157-399); Red Blood Count 5.48 10^6/uL (3.85-5.65); Red Cell Distribution Width 14.1 % (12.1-15.1); White Blood Count 10.36 10^3/uL (3.29-11.43)
--- NOTE | 2024-10-25 14:00 | ED_ITS ---
HPI - Headache 2 General: Chief Complaint: Headache Stated Complaint: SOB, headache Time Seen by Provider: 10/25/24 12:58 Source: patient Mode of arrival: ambulatory Limitations: no limitations History of Present Illness: Patient is a 63-year-old male with past medical history of hypertension, CHF, STEMI, CAD, CKD who presents the emergency department complaining of headaches for the past couple of weeks. Patient states he has these headaches when his blood pressure gets high, he was just prescribed double dose metoprolol today and was on his way to pharmacy to pick this up but stopped by the ED to get his headache checked out. States at home he has been having fluctuating blood pressures, when it is high as when he has headaches, it is worse in the morning and he has been having some nausea and general weakness. No other medication changes recently, he has not started taking the 50 mg of metoprolol twice a day that he was just prescribed today. Blood pressure at triage 145/83, heart rate in the 80s. States he has been noticing heart rates at home of greater than 100 as well as a diastolic blood pressure greater than 110. Denies any focal neurological deficits. Denies history of migraines. He states while this feels similar to prior hypertension headaches, he is stating this feels much more severe. He is not reporting any chest pain, shortness of breath, increased peripheral edema, or other concerning symptoms at this time. Patient noted to be anxious with multiple complaints and tangents during examination and history. MD elicited complaint: headache Pertinent past history: hypertension Onset (ago): week(s) Onset description: gradually Location: frontal Severity: severe Quality & Timing: aching and throbbing Context: other (History of hypertension headaches) Associated symptoms: Reports nausea; Deny chest pain, fever(s), lightheadedness, rash or vomiting Related Data Home Medications Medication Instructions Recorded Confirmed acetaminophen 500 mg tablet 500 mg PO Q6H PRN Pain 06/11/22 10/25/24 (Tylenol Extra Strength) cholecalciferol (vitamin D3) 25 25 mcg PO DAILY 03/10/23 10/25/24 mcg (1,000 unit) capsule amlodipine 5 mg tablet 5 mg PO TID 10/25/24 10/25/24 furosemide 40 mg tablet See Rx Instructions .Route 10/25/24 10/25/24 .COMPLEX edema losartan 25 mg tablet 25 mg PO .@2PM 10/25/24 10/25/24 Previous Rx's Medication Instructions Recorded cyclobenzaprine 10 mg tablet 10 mg PO Q12H PRN muscle spasm #60 02/11/24 tabs ranolazine 1,000 mg 1,000 mg PO Q12H #180 tabs 04/04/24 tablet,extended release,12 hr needs new bipap machine #1 ea 04/27/24 clopidogrel 75 mg tablet (Plavix) 75 mg PO DAILY #90 tabs 05/01/24 alprazolam 1 mg tablet (Xanax) 1 mg PO Q12H #60 tabs 05/03/24 nitroglycerin 0.4 mg sublingual 0.4 mg sublingual Q5M PRN chest 07/12/24 tablet pains #25 tabs fenofibrate nanocrystallized 145 145 mg PO DAILY@0800 #90 tabs 08/17/24 mg tablet isosorbide mononitrate 30 mg 30 mg PO DAILY@0800 #90 tabs 08/17/24 tablet,extended release 24 hr potassium chloride 20 mEq 20 meq PO BID #60 tabs 10/02/24 tablet,extended release(part/cryst) furosemide 80 mg tablet (Lasix) 80 mg PO BID #180 tabs 10/17/24 metoprolol tartrate 50 mg tablet 50 mg PO BID #60 tabs 10/25/24 Allergies Allergy/AdvReac Type Severity Reaction Status Date / Time metolazone Allergy Severe ALGY-Anaphy Verified 10/17/24 14:35 laxis NSAIDS (Non-Steroidal Allergy Severe ALGY-Anaphy Verified 10/17/24 14:35 Anti-Inflamma laxis aspirin Allergy ALGY-Anaphy Verified 10/17/24 14:35 laxis azithromycin Allergy ALGY-Anaphy Verified 10/17/24 14:35 laxis bumetanide Allergy ALGY-Hives Verified 10/25/24 14:24 Review of Systems 2 General: Reports: 10 or more systems reviewed and unremarkable except in HPI and below Const: Denies: fever(s), chills or fatigue Eyes: Denies: change in vision ENMT: Denies: throat pain, ear or mastoid pain or nasal discharge Card: Denies: chest pain, palpitations, swelling of feet/ankles or lightheadedness Resp: Denies: dyspnea, productive cough or wheezing GI: Reports: nausea; Denies: abdominal pain, vomiting, diarrhea or constipation : Denies: flank pain, difficulty urinating, dysuria or urinary frequency Musc: Denies: neck pain, back pain or joint pain Skin/Breast: Denies: rash Neuro: Reports: headache(s) and weakness in extremities; Denies: numbness in extremities, sensory changes, lack of coordination, Slurred speech present or seizure-like activity PFSH ED 2 PFSH: Medical History CHF (congestive heart failure), NYHA class III Chronic venous insufficiency of lower extremity Chronic kidney disease (CKD) Aspirin allergy CHF (congestive heart failure), NYHA class I LVEF 60%, grade 1 diastolic dysfunction 08/03/24 Dyslipidemia Essential hypertension Obesity Tobacco abuse stopped smoking in 2017 STEMI (ST elevation myocardial infarction) CAD (coronary artery disease) Family History Mother Anesthesia complication CAD (coronary artery disease) Diabetes Hyperlipidemia Hypertension Father Anesthesia complication CAD (coronary artery disease) Chronic kidney disease (CKD) Denies family history of Clotting disorder Dementia Psychiatric illness Suicide Bleeding disorder Family history of premature coronary artery disease Lung disease Cancer Stroke Social History Smoking and tobacco/nicotine status: former use of tobacco/nicotine Second hand smoke exposure: Yes Alcohol intake: current Alcohol intake frequency: holidays/special occasions only Alcohol type: hard liquor Substance/Drug Use: never Physical Exam 2 Const: COMMON NORMALS: no acute distress, patient oriented x3 and no limitations GENERAL APPEARANCE: cooperative, well developed and anxious N UTRITIONAL APPEARANCE: obese morbidly obese ORIENTATION/CONSCIOUSNESS: Yes awake, Yes oriented to person, Yes oriented to place and Yes oriented to time HENMT: COMMON NORMALS: normocephalic, atraumatic and hearing grossly normal bilaterally HEAD & SCALP: normocephalic and atraumatic Eye: COMMON NORMALS: Equal, round and reactive pupils present, EOMs intact bilaterally and conjunctivae normal CONJUNCTIVA: Yes conjunctivae normal P UPIL: Yes Equal, round and reactive pupils present Neck/C-Spine: COMMON NORMALS: full ROM, supple and no JVD Resp: COMMON NORMALS: normal respiratory effort, No retractions, No use of accessory muscles and clear to auscultation bilaterally AUSCULTATION: clear to auscultation bilaterally Cardio: COMMON NORMALS: no JVD, regular rate, regular rhythm, No clicks present (Cardio), No murmurs present (Cardio) and No rub (Cardio) RATE: r egular rate RHYTHM: regular rhythm GI: COMMON NORMALS: Normal to inspection, nondistended, normoactive bowel sounds present and non-tender INSPECTION: Yes central obesity A USCULTATION: Yes normoactive bowel sounds RECTAL EXAM: Yes deferred Extremity: COMMON NORMALS: normal to inspection, full ROM and capillary refill normal Neuro: COMMON NORMALS: patient oriented x3, CN's II-XII intact bilaterally, moves all extremities, no focal motor deficits and no sensory deficits noted SENSORIUM/ORIENTATION: Yes oriented to person, Yes oriented to place and Yes oriented to time Skin: COMMON NORMALS: no rashes or lesions noted GENERAL SKIN EXAM: no rashes or lesions noted Course 2 Vital Signs: Vital signs: Vital Signs Temperature 97.8 F 10/25/24 11:52 Pulse Rate 79 10/25/24 14:35 Respiratory Rate 26 H 10/25/24 14:35 Blood Pressure 147/86 10/25/24 14:35 Pulse Oximetry 99 10/25/24 14:35 Oxygen Delivery Me thod Room Air 10/25/24 13:20 MDM - Headache Medical Decision Making Patient very anxious on exam, had multiple complaints. 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 Of note states that he has been under increased stress, he showed me a paper he has been filling out with blood pressures and heart rates, heart rate noted to only be over 100 at night. His blood work was unremarkable, head CT was normal. Neurologically intact on physical exam, did not appear fluid overloaded and I do not suspect any cardiac etiology as his headache has been going on for more than 2 weeks and is similar to prior headaches he has had with hypertension. This could be a migraine, may be related to hypertension, overall told him to start taking his metoprolol and to closely follow-up again with primary care and cardiology. He did not have any complaints of chest pain, shortness of breath, increased peripheral edema, or other concerning cardiac findings that would warrant cardiac workup at this time, he is comfortable with discharge home and strict return precautions given. He does note improvement of his headache after receiving medications here in the emergency department, his blood pressure has been 140 systolic and heart rate has been normal throughout ED stay. Lab Data 10/25/24 13:50 10/25/24 13:[address] 10/25/24 13:28 IMPRESSION: Negative head CT. Laboratory Results WBC 10.36 10^3/uL (3.29-11.43) 10/25/24 13:50 RBC 5.48 10^6/uL (3.85-5.65) 10/25/24 13:50 Hgb 16.70 g/dL (11.27-16.99) 10/25/24 13:50 Hct 51.4 % (37-53) 10/25/24 13:50 MCV 93.8 fl (82-101) 10/25/24 13:50 MCH 30.5 pg (27-33) 10/25/24 13:50 MCHC 32.5 g/dL (30-55) 10/25/24 13:50 RDW 14.1 % (12.1-15.1) 10/25/24 13:50 Plt Count 238 10^3/cmm (157-399) 10/25/24 13:50 MPV 9.3 fL (7.4-10.4) 10/25/24 13:50 Neut % (Auto) 66.6 % 10/25/24 13:50 Lymph % (Auto) 24.6 % 10/25/24 13:50 [place] % (Auto) 6.8 % 10/25/24 13:50 Eos % (Auto) 0.4 % 10/25/24 13:50 Baso % (Auto) 0.5 % 10/25/24 13:50 Neut # (Auto) 6.91 10^3/uL (1.8-7.7) 10/25/24 13:50 Lymph # (Auto) 2.6 10^3/uL (0.8-4.8) 10/25/24 13:50 [place] # (Auto) 0.7 10^3/uL (0.2-0.9) 10/25/24 13:50 Eos # (Auto) 0.0 10^3/uL (0.0-0.8) 10/25/24 13:50 Baso # (Auto) 0.1 10^3/uL (0.0-0.1) 10/25/24 13:50 Nucleated RBC % (auto) 0 % 10/25/24 13:50 Nucleated RBCs # 0.0 /100WBC 10/25/24 13:50 Sodium 140 mmol/L (136-145) 10/25/24 13:50 Potassium 3.8 mmol/L (3.5-5.1) 10/25/24 13:50 Chloride 98 mmol/L (98-107) 10/25/24 13:50 Carbon Dioxide 27 mmol/L (22-29) 10/25/24 13:50 Anion Gap 18.8 (5-19) 10/25/24 13:50 BUN 27 mg/dL (8-23) H 10/25/24 13:50 Creatinine 1.1 mg/dL (0.7-1.2) 10/25/24 13:50 GFR Calculation 67.6 mL/min (90-130) L 10/25/24 13:50 Glucose 128 mg/dL (65-115) H 10/25/24 13:50 Calculated Osmolality 297 mOsm/kg (285-295) H 10/25/24 13:50 Calcium 10.3 mg/dL (8.5-10.5) 10/25/24 13:50 Total Bilirubin 0.5 mg/dL (0.15-1.2) 10/25/24 13:50 AST 22 U/L (0-40) 10/25/24 13:50 ALT 42 U/L (0-41) H 10/25/24 13:50 Alkaline Phosphatase 66 U/L (40-130) 10/25/24 13:50 Total Protein 7.1 g/dL (6.6-8.7) 10/25/24 13:50 Albumin 4.2 g/dL (3.5-5.2) 10/25/24 13:50 Globulin 2.9 g/dL (1.3-4.6) 10/25/24 13:50 All radiology interpretation(s) finalized by discharge Discharge Plan Discharge Patient Disposition: Home Clinical Impression: Hypertension Qualifiers: Hypertension type: primary hypertension Qualified Code(s): I10 - Essential (primary) hypertension Headache Qualifiers: Headache type: unspecified Headache chronicity pattern: chronic headache I ntractability: intractable Qualified Code(s): R51.9 - Headache, unspecified Condition: Stable Prescriptions: No Action acetaminophen [Tylenol Extra Strength] 500 mg tablet 500 mg PO Q6H PRN (Reason: Pain) cholecalciferol (vitamin D3) 25 mcg (1,000 unit) capsule 25 mcg PO DAILY furosemide [Lasix] 80 mg tablet 80 mg PO BID Qty: 180 1RF Rx Instructions: Take 80 mg by mouth for 1 week then switch to 40mg. alternate weeks between to dosages. potassium chloride 20 mEq tablet,ER particles/crystals 20 meq PO BID Qty: 60 2RF cyclobenzaprine 10 mg tablet 10 mg PO Q12H PRN (Reason: muscle spasm) Qty: 60 6RF ranolazine 1,000 mg tablet extended release 12 hr 1,000 mg PO Q12H Qty: 180 3RF Rx Instructions: take at 0800 and 2000 (DME) needs new bipap machine See Rx Instructions .Route .MEDSUPPLY Qty: 1 0RF Rx Instructions: titration, 22/18cm, see recent cpap study clopidogrel [Plavix] 75 mg tablet 75 mg PO DAILY Qty: 90 2RF alprazolam [Xanax] 1 mg tablet 1 mg PO Q12H Qty: 60 5RF nitroglycerin 0.4 mg tablet, sublingual 0.4 mg sublingual Q5M PRN (Reason: chest pains) Qty: 25 3RF isosorbide mononitrate 30 mg tablet extended release 24 hr 30 mg PO DAILY@0800 Qty: 90 1RF fenofibrate nanocrystallized 145 mg tablet 145 mg PO DAILY@0800 Qty: 90 1RF metoprolol tartrate 50 mg tablet 50 mg PO BID Qty: 60 3RF furosemide 40 mg tablet See Rx Instructions .ROUTE .COMPLEX Rx Instructions: Take 40 mg by mouth daily for 1 week, then switch to 80mg the next week, rotating. amlodipine 5 mg tablet 5 mg PO TID losartan 25 mg tablet 25 mg PO .@2PM Discharge Orders: Discharge ED (Routine); Ordered 10/25/24 Ordered By: Dhaval Scott Referrals: Anthony Marquez, [email or web address] [Primary Care Provider] - Patient Instructions: Headache, Hypertension (ED) Activity Restrictions/Additional Instructions: Please begin taking your metoprolol 50 mg twice a day as you were prescribed today. Continue taking other medications. Follow-up closely with primary care and cardiology. If you start having any chest pain, severe shortness of breath, or other concerning cardiac symptoms please return to the emergency department for immediate reevaluation. Coding Level of Care Code ED Plaster Lather for [facility]
[2024-10-25] MEDS: sodium chloride 0.9% 1,000 ML 999 ML IV (14:13)
[2024-10-25 14:15] LABS: Alanine Aminotransferase 42 U/L (0-41); Albumin Level 4.2 g/dL (3.5-5.2); Alkaline Phosphatase 66 U/L (40-130); Anion Gap 18.8 (5-19); Aspartate Amino Transferase 22 U/L (0-40); Blood Urea Nitrogen 27 mg/dL (8-23); Calcium 10.3 mg/dL (8.5-10.5); Carbon Dioxide 27 mmol/L (22-29); Chloride 98 mmol/L (98-107); Creatinine Clr Calc Pharmacy 87.5595; Globulin 2.9 g/dL (1.3-4.6); Glomerular Filtration Rate 67.6 mL/min (90-130); Glucose 128 mg/dL (65-115); Osmolality Calculated 297 mOsm/kg (285-295); Potassium 3.8 mmol/L (3.5-5.1); Sodium 140 mmol/L (136-145); Total Bilirubin 0.5 mg/dL (0.15-1.2); Total Protein 7.1 g/dL (6.6-8.7)
[2024-10-25] MEDS: acetaminophen 500 mg Tablet 1000 MG PO (14:19)
[2024-10-25] MEDS: dexamethasone 10 mg/mL INJ IVP (14:20)
[2024-10-25] MEDS: ondansetron 2 mg/ML SDV 2 mL 8 MG IVP (14:22)
[2024-10-25] MEDS: diphenhydrAMINE 50 mg/mL SDV 1mL IVP (14:23)
== END 2024-10-25 15:04 | disposition home or self-care (01) ==
PROVIDERS: Emergency Provider Physician Assistant; PCP Nurse Practitioner Family
DX: R51.9 Headache, unspecified (principal); Z79.02 Long term (current) use of antithrombotics/antiplatelets; I13.0 Hypertensive heart and chronic kidney disease with heart failure and stage 1 through stage 4 chronic kidney disease, or unspecified chronic kidney disease; N18.9 Chronic kidney disease, unspecified; I50.9 Heart failure, unspecified; E78.5 Hyperlipidemia, unspecified; I25.10 Atherosclerotic heart disease of native coronary artery without angina pectoris; Z87.891 Personal history of nicotine dependence
CPT/HCPCS: 70450; 80053; 85025; 93005; 96361; 96374; 96375; 99285; J1100; J1200; J2405; J7030

== ENCOUNTER → 2024-11-16 12:48 | Outpatient (BNVA) | payer MEDICARE, SELFPAY | PROVIDERS: PCP Nurse Practitioner Family; Visit Provider Physician Assistant | DX: M17.0 Bilateral primary osteoarthritis of knee (principal) | CPT/HCPCS: 20610; 99213; J3301 ==

== ENCOUNTER → 2025-01-01 12:35 | Outpatient (BNVA) | payer MEDICARE, SELFPAY | PROVIDERS: PCP Nurse Practitioner Family; Visit Provider Internal Medicine Cardiovascular Disease | DX: I25.118 Atherosclerotic heart disease of native coronary artery with other forms of angina pectoris (principal); E66.9 Obesity, unspecified; Z68.42 Body mass index [BMI] 45.0-49.9, adult; G47.30 Sleep apnea, unspecified; Z88.8 Allergy status to other drugs, medicaments and biological substances; I13.0 Hypertensive heart and chronic kidney disease with heart failure and stage 1 through stage 4 chronic kidney disease, or unspecified chronic kidney disease; N18.9 Chronic kidney disease, unspecified; I50.9 Heart failure, unspecified | CPT/HCPCS: 99214 ==

== ENCOUNTER → 2025-02-20 13:05 | Outpatient (BNVA) | payer MEDICARE, SELFPAY | PROVIDERS: PCP Nurse Practitioner Family; Visit Provider Physician Assistant | DX: M17.0 Bilateral primary osteoarthritis of knee (principal); Z71.89 Other specified counseling | CPT/HCPCS: 20610; 73560; 73565; 99213; J3301; J9999 ==

== ENCOUNTER → 2025-05-29 12:32 | Outpatient (BNVA) | payer MEDICARE, SELFPAY | PROVIDERS: PCP Nurse Practitioner Family; Visit Provider Physician Assistant | DX: M17.0 Bilateral primary osteoarthritis of knee (principal); Z71.89 Other specified counseling; L03.115 Cellulitis of right lower limb; L03.116 Cellulitis of left lower limb | CPT/HCPCS: 20610; 99213; J3301; J9999 ==

== ENCOUNTER → 2025-06-19 12:05 | Outpatient (BNVA) | payer MEDICARE, SELFPAY | PROVIDERS: PCP Nurse Practitioner Family; Visit Provider Internal Medicine Cardiovascular Disease | DX: I10 Essential (primary) hypertension (principal); I25.118 Atherosclerotic heart disease of native coronary artery with other forms of angina pectoris; I50.9 Heart failure, unspecified; R58 Hemorrhage, not elsewhere classified | CPT/HCPCS: 36415; 80048; 85025; 85610 ==

== ENCOUNTER → 2025-07-11 10:30 | Outpatient (BNVA) | payer MEDICARE, SELFPAY | PROVIDERS: PCP Nurse Practitioner Family; Visit Provider Nurse Practitioner Family | DX: E11.9 Type 2 diabetes mellitus without complications (principal); I10 Essential (primary) hypertension | CPT/HCPCS: 80048; 83036 ==

== ENCOUNTER 2025-07-16 08:32 | Outpatient (CLI) | payer MEDICARE, SELFPAY ==
[2025-07-16] VITALS (24 sets, daily range): BP systolic 103–137; BP diastolic 68–88; PULSE 55–69; RESP 16–29; TEMP 36.8; O2SAT 93–99; BMI 49.4
--- NOTE | 2025-07-16 | XACV_ITS ---
Exam Room: 2 Ht: 165 cm Wt: 135 kg BSA: 2.57 m2 Gender: Male : 1960 Any Known Allergies: Other Exam Priority: Routine Procedure(s): Procedure Description: Diagnostic procedure Procedure Description: Left Heart Catheterization Procedure Description: Right Heart Catheterization Procedure Description: Left ventriculography Procedure Description: O2 saturation Procedure Description: Coronary Angiography Procedure Description: Pressure Wire Diagnostic Cath Status: Elective Diagnostic Findings * Left Main has no disease. * Circumflex has no disease. * Mid Left Anterior Descending to Distal Left Anterior Descending: minimal 30% stenosis, POLINA: 3 flow. * Mid Right Coronary Artery: obstructive 60% stenosis, POLINA: 3 flow, iFR performed: ratio is 0.98. * Coronary angiography shows right dominance. Conclusions 1. Indication: Worsening of angina, shortness of breath. 2. There appeared to be mild aortic valve stenosis with peak to peak gradient of 4 mmHg.. 3. There is obstructive coronary artery disease with two vessel disease. 4. All [place] are normal. 5. Normal left ventricular systolic function. Ejection fraction of 65%. Recommendations * Continue medical management and risk factor modification. Diagnostic RX Recommendation: medical therapy and/or counseling LV EDP: 30 mmHg Ventriculography Ejection Fraction: 65.0 % Pressures Phase:Rest AO : 114 / 76 ( 90 ) @ 11:42:00 AM 111 / 79 ( 92 ) @ 11:47:00 AM 92 / 72 ( 84 ) @ 11:48:00 AM 96 / 74 ( 87 ) @ 11:55:00 AM 98 / 66 ( 82 ) @ 12:02:00 PM 105 / 64 ( 83 ) @ 12:05:00 PM 127 / 79 ( 101 ) @ 12:13:00 PM 127 / 79 ( 101 ) @ 12:13:00 PM LV : 135 / 10 / 28 @ 12:11:00 PM 132 / 16 / 30 @ 12:13:00 PM 131 / 16 / 30 @ 12:13:00 PM RV : 50 / 17 / 25 @ 11:26:00 AM PA : 47 / 29 ( 34 ) @ 11:23:00 AM RA : a wave = 30 v wave = 27 mean = 23 @ 11:27:00 AM PCW : a wave = 29 v wave = 34 mean = 27 @ 11:24:00 AM O2 Content Phase:Rest PA : O2 Content O2: 65.7 @ 11:55:00 AM Saturations Phase:Rest AO : 92 @ 11:42:00 AM RA : 68 @ 11:47:00 AM RV : 69 @ 11:48:00 AM PA : 66 @ 11:55:00 AM Cardiac Output Phase:Rest Surjit : 5 @ 11:18:34 AM Surjit Cardiac Index: 2 @ 11:18:34 AM Flow Phase:Rest Qp : 5 @ 11:18:34 AM Qs : 6 @ 11:18:34 AM Valves Phase:DefaultPhase AV : 4.0 @ 11:18:34 AM AV Mean Gradient: 11.0 @ 11:18:34 AM AV Flow: 807 @ 11:18:34 AM AV Area: 5.5 @ 11:18:34 AM AV Area Index: 2.35 @ 11:18:34 AM Clinical Evaluation EBL: 5mL-10mL Procedural Details Procedure Consent Obtained. Pre-Procedure Time Out. Identified patient by full name and date of as verbalized by the patient/guarantor. Does the consent match the physician's order: Yes. Accurate & Complete Informed Consent: Yes. Inpatient/Outpatient History & Physical on Chart: Yes. If H&P is completed, is and addenduem needed: No; If yes, is the addendum complete: N/A. Visualize and Verify Site with Patient/Guarantor: N/A. Relevant Radiology Images available: Yes. Pre-op teaching completed and patient verbalized understanding. The risks, benefits, and alternatives of sedation and/or procedure were discussed by physician. The patient agrees to continue. Procedure started. [facility] Clinical Fraility Score: 4: Vulnerable. [place] Operator Indications: Other. Chest Pain Symptom Assessment: Atypical Angina. Correct patient, site and procedure confirmed by cath team. PERRLA. Strong, equal hand service station attendant bilaterally. Lungs clear x 5 lobes. IV Site on Arrival: 20 gauge in the right anticubital. IV Site on Arrival: 20 gauge in the left anticubital. IV Fluids: 0.9% NaCl at KVO. 0 mL infused prior to laborer bituminous paving. Pre Procedural Pulses: bilateral dorsalis pedis was 2+. Pre Procedural Pulses: bilateral posterior tibial was 3+. Pre Procedural Pulses: bilateral radial was 3+. right groin was prepped with chloroprep then draped in the usual sterile fashion. right radial was prepped with chloroprep then draped in the usual sterile fashion. right brachial was prepped with chloroprep then draped in the usual sterile fashion. Physician notified. Physician arrived. Baseline sample Acquired. HR: 59 BPM. Physician scrubbed in. Immediate Pre-Procedure Time Out. Correct Patient: Yes; Correct Procedure: Yes; Correct Site: Yes; Correct Patient Position: Yes; Correct Supplies: Yes; Dried Flammable Prep: Yes; Blood Products Available: N/A;. Lidocaine 1% infiltrated to the right brachial. Sheath wire inserted through the IV catheter. IV catheter out OTW. [place] MON catheter inserted. [place] wire inserted through the catheter. Wire out. Pressure measurements obtained. Oximetry samples were obtained. Normal venous range: 60-85%. Normal arterial range: 95-100%. [place] out. Lidocaine 1% infiltrated to the right radial. Ultrasound being used to obtain arterial access. Arterial access obtained. Respiratory called to olive picker blood samples. A 5 burkinan TIG catheter in over wire. Catheter removed over the exchange wire. A 5 burkinan Froilan catheter in over wire. Respiratory arrived to olive picker samples. Multiple views taken of left coronary artery. Catheter redirected to the RCA. Catheter removed over the exchange wire. A 5 burkin[place] JR4 catheter in over wire. Multiple views taken of right coronary artery. Catheter removed over the exchange wire. 6 burkinan AL 0.75 guide catheter was inserted over the wire. IFR guidewire was advanced through the guide catheter to lesion in the mid RCA. IFR Result: 0.98. Wire out. Results checked. Guide catheter out. A 5 burkinan Angled Pig catheter in over wire. EDP Sample taken: LV 135/10,28; HR: 75 BPM; SpO2: 94%. LV gram performed in [place] @ 10 mL/second for a total of 30 mL. EDP Sample taken: LV 132/16,30; HR: 64 BPM; SpO2: 95%. Pullback taken: LV 131/16,30; AO 127/79(101); Mean: 11mmHg, Peak to Peak: 4mmHg, SEP: 6sec/min; HR: 67 BPM; SpO2: 95%. Catheter removed over the exchange wire. A TR Band was successful obtaining hemostatsis at the Right Radial artery insertion site. Post Procedure: Pulses reassessed and unchanged. PERRLA. Strong, equal hand service station attendant bilaterally. No VTE prophylaxis required. Medication's Wasted: Lidocaine 1% = 15 mL. Medication's Wasted: Heparin = 1000 units. Medication's Wasted: Nitro = 49.5 mcg. Medication's Wasted: Other = Fentanyl 50 mcg. Total IV fluids: 50 mL. Post-op diagnosis: Non-obstructive CAD. Complications: None. Estimated blood loss: 5mL-10mL. Responsiveness - Normal response to verbal stimuli; alert and oriented, PERRLA. Airway - Unaffected, no intervention required; spontaneous ventilation. Circulation: W/N/L, pulses unchanged. Nausea/Vomiting: No. Procedure completed. Patient transferred by wheelchair to CPRU. Vital chart was stopped. Access Site Site: Right Brachial Vein Sheath Size: 6 Fr Hemostasis Success: Unsuccessful Site: Right Radial artery Sheath Size: 6 Fr Hemostasis Method: TR Band Hemostasis Success: Successful Procedure Medications Start: 10:10 AM Stop: 10:10 AM Medication: Benadryl Amount: 50 mg Route: I.V. Start: 10:13 AM Stop: 10:13 AM Medication: Versed Amount: 1 mg Route: I.V. Start: 10:13 AM Stop: 10:13 AM Medication: Fentanyl Amount: 25 mcg Route: I.V. Start: 10:18 AM Stop: 10:18 AM Medication: Versed Amount: 1 mg Route: I.V. Start: 10:31 AM Stop: 10:31 AM Medication: Fentanyl Amount: 25 mcg Route: I.V. Start: 10:35 AM Stop: 10:35 AM Medication: Nitrogylcerin Amount: 25 mcg Route: S.Q. Start: 10:39 AM Stop: 10:39 AM Medication: Nitrogylcerin Amount: 200 mcg Route: I.A. Start: 10:41 AM Stop: 10:41 AM Medication: Versed Amount: 1 mg Route: I.V. Start: 10:42 AM Stop: 10:42 AM Medication: Heparin Amount: 5000 units Route: I.V. Start: 10:57 AM Stop: 10:57 AM Medication: Heparin Amount: 5000 units Route: I.V. Start: 11:08 AM Stop: 11:08 AM Medication: Versed Amount: 1 mg Route: I.V. I, the attending physician, have reviewed and verified all procedure medications. Yes, all medications given per verbal order History/Risk Factors Hypertension: Yes Dyslipidemia: Yes Peripheral Arterial Disease (PAD): No Myocardial Infarction (MO): Yes Obesity: Yes Renal Disease: No Tobacco Use: Former Prior Interventions PCI: Yes CABG: No Valve Surgery: No Date of PCI: 03/17/2017 Report Signatures Finalized by Elba Townsend MD on 08/05/2025 10:25 PM
--- NOTE | 2025-07-16 09:59 | W.PM.OPSUD ---
Surgery/Procedure H&P Update DATE OF PROCEDURE: July 16, 2025 DATE H&P PERFORMED: 06/19/25 H&P UPDATE INFORMATION: I have reviewed H&P completed within last 30 days, I have examined patient prior to procedure, No changes to prior documentation, H&P to be scanned into chart, H&P is in [facility] EMR on date indicated and Risks and benefits of the procedure reviewed PREOP DIAGNOSIS: Chest pain/unexplained shortness of breath PRIMARY INDICATION FOR PROCEDURE: 64-year-old male past medical history significant for coronary artery disease history of prior PCI, sleep apnea obesity continues to do worse over time with worsening of chest pain along with shortness of breath, patient had a stress test last year which did not show ischemia however despite of optimization medicine he continues to do worse. Now to the point that he struggled with breathing and chest pressure on daily basis. Given his history of extensive coronary artery disease today patient is here for left heart and right heart catheterization PLANNED PROCEDURE: Operation Date: 07/16/25 10:00 Proposed Procedures p Cardiac Catheterization - RLHC w/wo LV & Laura(Bilateral) - Elba Townsend MD PATIENT REASSESSED PRIOR TO SEDATION, WITH NO CHANGE NOTED: Yes PHYSICAL EXAM: alert, oriented x 3, clear to auscultation bilaterally, regular rate & rhythm and operative site marked OTHER PERTINENT EXAM FINDINGS: Patient has been explained all risk-benefit and alternative for the procedure. Patient understand 2% risk of stroke major bleed. Patient understand 5% risk of minor bleeding oozing infection hematoma contrast-induced nephropathy pseudoaneurysm urgent or emergent vascular bypass surgery. Patient agrees to it and would like to proceed with it.
[2025-07-16 10:52] LABS: Arterial Blood Gas Hematocrit 47.1 % (42-52); Blood Gas Operator Identificat glc; Blood Gas Sample Site Not specified; Blood Gas Sample Type Not specified; Carboxyhemoglobin 1.3 %THgb (0.4-20.1); Methemoglobin 0.8 % (0.4-1.5)
[2025-07-16 10:54] LABS: Arterial Blood Gas Hematocrit 45.3 % (42-52); Blood Gas Operator Identificat glc; Blood Gas Sample Site Not specified; Blood Gas Sample Type Not specified; Carboxyhemoglobin 1.3 %THgb (0.4-20.1); Methemoglobin 0.8 % (0.4-1.5)
[2025-07-16 10:56] LABS: Arterial Blood Gas Hematocrit 45.4 % (42-52); Blood Gas Operator Identificat glc; Blood Gas Sample Site Not specified; Blood Gas Sample Type Not specified; Carboxyhemoglobin 1.4 %THgb (0.4-20.1); Methemoglobin 0.8 % (0.4-1.5)
[2025-07-16 10:58] LABS: Arterial Blood Gas Hematocrit 47.2 % (42-52); Blood Gas Operator Identificat glc; Blood Gas Sample Site Not specified; Blood Gas Sample Type Not specified; Carboxyhemoglobin 1.3 %THgb (0.4-20.1); Methemoglobin 0.8 % (0.4-1.5)
--- NOTE | 2025-07-16 16:45 | PC.NURSE ---
Discharge instructions given to patient. Verbalized understanding. Patient discharged home with all personal belongings.
== END 2025-07-16 08:33 | disposition home or self-care (01) ==
PROVIDERS: PCP Nurse Practitioner Family; Visit Provider Internal Medicine Cardiovascular Disease
DX: I25.118 Atherosclerotic heart disease of native coronary artery with other forms of angina pectoris (principal); E78.5 Hyperlipidemia, unspecified; I25.2 Old myocardial infarction; Z87.891 Personal history of nicotine dependence; Z79.01 Long term (current) use of anticoagulants; I13.0 Hypertensive heart and chronic kidney disease with heart failure and stage 1 through stage 4 chronic kidney disease, or unspecified chronic kidney disease; N18.9 Chronic kidney disease, unspecified; I50.9 Heart failure, unspecified; E66.9 Obesity, unspecified; Z68.42 Body mass index [BMI] 45.0-49.9, adult; Z82.49 Family history of ischemic heart disease and other diseases of the circulatory system; G47.30 Sleep apnea, unspecified
CPT/HCPCS: 36415; 82810; 93460; 93571; 99152; 99153; C1751; C1769; C1887; C1894; J1200; J1644; J2250; J3010; J3490; J7030; J9999; Q0163; Q9967

== ENCOUNTER → 2025-08-16 15:28 | Outpatient (BNVA) | payer MEDICARE, SELFPAY | PROVIDERS: PCP Nurse Practitioner Family; Visit Provider Internal Medicine Cardiovascular Disease | DX: I77.9 Disorder of arteries and arterioles, unspecified (principal); I11.0 Hypertensive heart disease with heart failure; I50.9 Heart failure, unspecified; I25.2 Old myocardial infarction | CPT/HCPCS: 99214 ==

== ENCOUNTER → 2025-08-23 11:06 | Outpatient (BNVA) | payer MEDICARE, SELFPAY | PROVIDERS: PCP Nurse Practitioner Family; Visit Provider Nurse Practitioner Family | DX: E11.9 Type 2 diabetes mellitus without complications (principal) | CPT/HCPCS: 83036 ==

== ENCOUNTER → 2025-09-04 12:14 | Outpatient (BNVA) | payer MEDICARE, SELFPAY | PROVIDERS: PCP Nurse Practitioner Family; Visit Provider Physician Assistant | DX: M17.0 Bilateral primary osteoarthritis of knee (principal) | CPT/HCPCS: 20610; 99213; J3301; J9999 ==